=== PATIENT | female | born 1930 | race Caucasian/White ===

== ENCOUNTER 2017-05-11 09:55 | Inpatient (IN) | payer OTHER ==
[2017-05-11 10:19] VITALS: BMI 27.3
[2017-05-11] MEDS ORDERED: morphine CARPU-JECT 2 MG/1 ML DISP.SYRIN IVPUSH ONE (10:44)
--- NOTE | 2017-05-11 11:07 | PDOC ---
History of Present Illness <Manohar Smith - Last Filed: 05/11/17 12:27> - General History Source: Patient, Friend Exam Limitations: No Limitations - History of Present Illness Initial Comments: 05/11/17 11:35 The patient is a 86 year old female with a significant PMH of dementia, hypertension, hyperlipidemia, depression, and CVA who presents to the emergency department from her care home for evaluation of two falls approximately 6 days ago. The patient fell about 6 days ago, had right hip x ray at the time and had a second fall that day with face/head injury. The patient is a poor historian and is currently complaining of a mild headache but has no other complaints at this time. The patient denies any tingling or weakness to the extremities. The patient denies LOC, chest pain, shortness of breath, headache and dizziness. Denies fever, chills, nausea, vomit, diarrhea and constipation. Allergies: NKA Social history: No reported alcohol, cigarette, or drug use. PCP: Dr. Turpin <Margaux Ruffin - Last Filed: 05/11/17 13:13> - General Chief Complaint: Injury Stated Complaint: FALL/HIP PAIN Time Seen by Provider: 05/11/17 10:29 Past History - Past Medical History Anemia: No Asthma: No Cancer: No Cardiac Disorders: No CVA: Yes COPD: No CHF: No DVT: No Dementia: Yes (can sign own consent) Diabetes: No GI Disorders: No Disorders: No HTN: Yes Hypercholesterolemia: Yes Liver Disease: No Psychiatric Problems: Yes (dementia,anxiety,major depression) Seizures: No Thyroid Disease: No Other medical history: syncope,dry eyes,osteoporosis.PVD - Surgical History Abdominal Surgery: No Appendectomy: No Cardiac Surgery: No Cholecystectomy: No Lung Surgery: No Neurologic Surgery: No Orthopedic Surgery: Yes (right fracture ankle) - Suicide/Smoking/Psychosocial Hx Smoking History: Never smoked Have you smoked in the past 12 months: No Information on smoking cessation initiated: No Hx Alcohol Use: No Drug/Substance Use Hx: No Substance Use Type: None Hx Substance Use Treatment: No <Manohar Smith - Last Filed: 05/11/17 12:27> <Margaux Ruffin - Last Filed: 05/11/17 13:13> - Past Medical History Allergies/Adverse Reactions: Allergies Allergy/AdvReac Type Severity Reaction Status Date / Time No Known Drug Allergies Allergy Verified 05/11/17 10:19 Home Medications: Ambulatory Orders Aspirin [ASA -] 81 mg PO DAILY 10/25/13 Calcium Carbonate/Vitamin D3 [Calcium 500-Vit D3 200 Caplet] 1 each PO DAILY Clopidogrel Bisulfate [Plavix -] 75 mg PO DAILY 10/25/13 Docusate Sodium [Colace] 200 mg PO HS 10/25/13 Escitalopram Oxalate [Lexapro -] 20 mg PO DAILY 10/25/13 Lorazepam 1 mg PO DAILY 10/25/13 Simvastatin [Zocor -] 80 mg PO HS 10/25/13 Furosemide [Lasix -] 40 mg PO DAILY 10/09/14 Olanzapine 2.5 mg PO HS 10/09/14 Sennosides [Senna -] 1 tab PO HS 10/09/14 Alprazolam [Xanax] 0.5 mg PO PRN PRN 10/10/14 Lisinopril [Prinivil -] 10 mg PO DAILY 10/10/14 Hypromellose 0.5% Opth Soln [Artificial Tears] 1 drop OU DAILY 05/11/17 Review of Systems - Review of Systems Constitutional: No: Chills, Fever HEENTM: No: Recent change in vision Respiratory: No: Cough, Shortness of Breath Cardiac (ROS): No: Chest Pain ABD/GI: No: Nausea, Vomiting Musculoskeletal: Yes: Joint Pain Integumentary: Yes: Bruising Neurological: No: Tingling, Weakness All Other Systems: Reviewed and Negative <Manohar Smith - Last Filed: 05/11/17 12:27> *Physical Exam - Vital Signs Last Vital Signs Temp Pulse Resp BP Pulse Ox 97.6 F 87 19 159/84 97 05/11/17 10:14 05/11/17 10:14 05/11/17 10:14 05/11/17 10:14 05/11/17 10:25 <Manohar Smith - Last Filed: 05/11/17 12:27> - Vital Signs Last Vital Signs Temp Pulse Resp BP Pulse Ox 97.6 F 87 19 159/84 97 05/11/17 10:14 05/11/17 10:14 05/11/17 10:14 05/11/17 10:14 05/11/17 10:25 - Physical Exam Comments: 05/11/17 11:15 General: Patient is alert and in no acute distress. Speech is clear and appropriate. Head: Atraumatic and nontender. HEENT: (+) ecchymosis on the right inferior orbital. No bony deformity. No step off. Pupils are equal round and reactive to light, extraocular movements are intact. The tympanic membranes are clear, no hemotympanum. No septal hematoma. The oropharynx is clear. Neck: The trachea is midline, there is no stridor. There is no midline cervical spine tenderness, full range of motion of neck. Chest: Nontender, no ecchymosis or abrasions. Heart: S1-S2, regular rate and rhythm. No murmurs. Lungs: Clear to auscultation bilaterally. Symmetric chest rise. Abdomen: Soft/nontender/nondistended. Bowel sounds are normal. There is no abdominal or flank ecchymosis. Back/Pelvis: There is no midline spine tenderness or step-off. Pelvis is stable and nontender. Extremities: (+) Right leg slightly shorter, externally rotated. (+) Neurovascularly intact but right groin/hip tenderness to palpation. (+) Slight bruising on the posterior right hip. There is no joint swelling. No focal bony tenderness throughout. 2+ distal pulses throughout. Neuro: Alert and oriented x3. Cranial nerves II through XII are intact. 5 out of 5 motor strength x4 extremities. Esmora-jpvh-snryzz is intact. No pronator drift. Gait is stable. Psych: Affect is appropriate. <Margaux Ruffin - Last Filed: 05/11/17 13:13> Heart Score/ECG Review #1 ECG reviewed & interpreted by me at: 11:29 General ECG Interpretation: Sinus Rhythm, Normal Rate (92), Normal Intervals ( qtc 460), No acute ischemic changes (Q wave III/AVF) <Manohar Smith - Last Filed: 05/11/17 12:27> ED Treatment Course - LABORATORY CBC & Chemistry Diagram: 05/11/17 10:49 05/11/17 10:49 - RADIOLOGY Radiology Studies Ordered: Category Date Time Status HEAD CT WITHOUT CONTRAST [CT] Stat CT Scan 05/11/17 10:44 Ordered CHEST - PA [RAD] Stat Radiology 05/11/17 10:44 Ordered HIP & PELVIS-RIGHT [RAD] Stat Radiology 05/11/17 10:44 Ordered <Manohar Smith - Last Filed: 05/11/17 12:27> - LABORATORY CBC & Chemistry Diagram: 05/11/17 10:49 05/11/17 10:49 <Margaux Ruffin - Last Filed: 05/11/17 13:13> Medical Decision Making - Medical Decision Making 05/11/17 11:04 A portion of this note was documented by scribe services under my direction. I have reviewed the details of the note, within reason, and agree with the documentation with the following case summary and management plan written by me. 86y/o F from [facility] for further evaluation of falls. Pt fell about 6d ago, had R hip xray at that time that showed ? irregularity of R femoral neck. Pt has been nwb since then, had a second fall that day with face/head injury. vss bruising R face without bone deformity. FROM neck without focal ttp lungs clear trauma exam otherwise unremarkable except for RLE: slight shortening but externally rotated, tender with bruising to R hip, nvi distally 86-year-old female with fall and right hip injury concerning for fracture. Also with right facial injury, rule out TBI. CT head, right hip x-ray Pain control Labs Likely admission 05/11/17 12:15 wbc 12.9, chem wnl with normal Cr. On my prelim review, R femoral neck fx. CT head pending. Will proceed with admission, [facility] called. 05/11/17 12:27 CT head without acute pathology. Accepted for inpt med/surg by Dr. 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 Jeffers (orthopedics) <Margaux Ruffin - Last Filed: 05/11/17 13:13> *DC/Admit/Observation/Transfer - Discharge Dispostion Admit: Yes <Manohar Smith - Last Filed: 05/11/17 12:27> - Attestations Scribe Attestion: 05/11/17 11:36 Documentation prepared by Margaux Ruffin, acting as medical radiation tech for Manohar Smith MD. <Margaux Ruffin - Last Filed: 05/11/17 13:13> Diagnosis at time of Disposition: Injury of right hip Qualifiers: Encounter type: initial encounter Qualified Code(s): S79.911A - Unspecified injury of right hip, initial encounter Accidental fall Qualifiers: Encounter type: initial encounter Qualified Code(s): W19.XXXA - Unspecified fall, initial encounter Femoral neck fracture Qualifiers: Encounter type: initial encounter Fracture type: closed Laterality: right Qualified Code(s): S72.001A - Fracture of unspecified part of neck of right femur, initial encounter for closed fracture - Discharge Dispostion Condition at time of disposition: Fair
[2017-05-11] MEDS ORDERED: morphine CARPU-JECT 10 MG/1 ML DISP.SYRIN ONE (11:15)
[2017-05-11 11:20] LABS: EOS % 1.7 % (0-4.5); HEMATOCRIT 40.2 % (32.4-45.2); HEMOGLOBIN 12.8 GM/dL (10.7-15.3); LYMPH % 6.9 % (8-40); MCH 27.1 pg (25.7-33.7); MCHC 31.8 g/dl (32.0-36.0); MEAN CELL VOLUME 85.3 fl (80-96); MEAN PLT VOLUME 7.9 fl (7.5-11.1); MONO % 11.8 % (3.8-10.2); NEUT % 78.6 % (42.8-82.8); PLATELET COUNT 310 K/MM3 (134-434); RBC 4.71 M/mm3 (3.60-5.2); RDW 14.1 % (11.6-15.6); WHITE BLOOD COUNT 12.9 K/mm3 (4.0-10.0)
[2017-05-11 11:35] LABS: INR 1.07 (0.82-1.09); PROTHROMBIN TIME (PATIENT) 12.1 SEC (9.98-11.88)
[2017-05-11 11:38] LABS: ACTIVATED PTT 28.3 SECONDS (26.9-34.4); ALBUMIN 2.6 g/dl (3.4-5.0); ALK PHOS 82 U/L (45-117); ANION GAP 7 (8-16); BILIRUBIN,TOTAL 0.8 mg/dL (0.2-1.0); BLOOD UREA NITROGEN 23 mg/dL (7-18); CALCIUM 8.7 mg/dL (8.5-10.1); CHLORIDE 106 mmol/L (98-107); CO2 25 mmol/L (21-32); CREATININE 0.7 mg/dL (0.55-1.02); GLUCOSE,RANDOM 114 mg/dL (74-106); POTASSIUM 4.1 mmol/L (3.5-5.1); SGOT/AST 19 U/L (15-37); SGPT/ALT 21 U/L (12-78); SODIUM 138 mmol/L (136-145); TOT PROT 6.5 g/dl (6.4-8.2)
--- NOTE | 2017-05-11 12:12 | EKG ---
Test Reason : Blood Pressure : / mmHG Vent. Rate : 092 BPM Atrial Rate : 092 BPM P-R Int : 150 ms QRS Dur : 084 ms QT Int : 372 ms P-R-T Axes : 031 -05 056 degrees QTc Int : 460 ms NORMAL SINUS RHYTHM INFERIOR INFARCT , AGE UNDETERMINED ABNORMAL ECG WHEN COMPARED WITH ECG OF 13-DEC-2014 10:49, INFERIOR INFARCT IS NOW PRESENT Confirmed by HENRY TABARES MD ([id number]) on 05/11/2017 12:12:09 PM Referred By: Confirmed By:HENRY TABARES MD
--- NOTE | 2017-05-11 13:30 | HP ---
Admitting History and Physical - Primary Care Physician PCP: Corine Turpin - Admission Chief Complaint: bed bound, unable to weight bear History of Present Illness: HPI: This is a 86 year old female with pmhx Dementia, CVA, HTN, HLD, syncope, depression presented to the ED after a fall at [facility]. The patient herself states she fell out of bed trying to get up. [facility] prison records, she fell last Thursday. At that gisele right hip xrays were taken and later in the same day fell again on her head. Since her fall, the patient has been unable to weight bare or get out of bed. She is currently unable to lift her leg or move it without pain. She denies chest pain, sob, abdominal pain, n/v. 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 Cardiovascular: Yes: HTN, Hyperlipdemia Psych: Yes: Depression - Smoking History Smoking history: Never smoked Have you smoked in the past 12 months: No - Alcohol/Substance Use Hx Alcohol Use: No - Social History Usual Living Arrangement: Yes: Assisted Living ADL: Support Services Home Medications - Allergies Allergies/Adverse Reactions: Allergies Allergy/AdvReac Type Severity Reaction Status Date / Time No Known Drug Allergies Allergy Verified 05/11/17 10:19 - Home Medications Home Medications: Ambulatory Orders Aspirin [ASA -] 81 mg PO DAILY 10/25/13 Clopidogrel Bisulfate [Plavix -] 75 mg PO DAILY 10/25/13 Escitalopram Oxalate [Lexapro -] 20 mg PO DAILY 10/25/13 Simvastatin [Zocor -] 80 mg PO HS 10/25/13 Sennosides [Senna -] 1 tab PO HS 10/09/14 Alprazolam [Xanax] 0.5 mg PO PRN PRN 10/10/14 Lisinopril [Prinivil -] 10 mg PO DAILY 10/10/14 Hypromellose 0.5% Opth Soln [Artificial Tears] 1 drop OU DAILY 05/11/17 Review of Systems - Review of Systems Constitutional: reports: No Symptoms Eyes: reports: No Symptoms HENT: reports: No Symptoms Neck: reports: No Symptoms Cardiovascular: reports: No Symptoms Respiratory: reports: No Symptoms Gastrointestinal: reports: No Symptoms Genitourinary: reports: No Symptoms Musculoskeletal: reports: No Symptoms, Extremity Pain (RLE) Integumentary: reports: Bruising (L medial calf) Neurological: reports: No Symptoms Endocrine: reports: No Symptoms Hematology/Lymphatic: reports: No Symptoms Psychiatric: reports: No Symptoms Physical Examination Vital Signs: Vital Signs Temperature 97.6 F 05/11/17 10:14 Pulse Rate 87 05/11/17 10:14 Respiratory Rate 19 05/11/17 10:14 Blood Pressure 159/84 05/11/17 10:14 O2 Sat by Pulse Oximetry (%) 97 05/11/17 10:25 Constitutional: Yes: Well Nourished Eyes: Yes: Conjunctiva Clear HENT: Yes: Other (R orbital/infraorbital hematoma,) Neck: Yes: WNL Cardiovascular: Yes: Regular Rate and Rhythm, S1, S2 Respiratory: Yes: Regular, CTA Bilaterally Gastrointestinal: Yes: Normal Bowel Sounds, Soft Renal/: Yes: WNL Extremities: Yes: External Rotation (RLE), Shortened Edema: No Peripheral Pulses WNL: Yes Integumentary: Yes: WNL Neurological: Yes: Alert, Oriented, Cran Nerves II-XII Intact Labs: CBC, BMP 05/11/17 10:49 05/11/17 10:49 Imaging - Results Chest X-ray: Report Reviewed X-ray: Report Reviewed (hip xray: Right femoral neck fx) Cat Scan: Report Reviewed (no intracranial bleed) Problem List - Problems (1) Accidental fall Code(s): W19.XXXA - UNSPECIFIED FALL, INITIAL ENCOUNTER Qualifiers: Encounter type: initial encounter Qualified Code(s): W19.XXXA - Unspecified fall, initial encounter (2) Femoral neck fracture Code(s): S72.009A - FRACTURE OF UNSP PART OF NECK OF UNSP FEMUR, INIT Qualifiers: Encounter type: initial encounter Fracture type: closed Laterality: right Qualified Code(s): S72.001A - Fracture of unspecified part of neck of right femur, initial encounter for closed fracture (3) Injury of right hip Code(s): S79.911A - UNSPECIFIED INJURY OF RIGHT HIP, INITIAL ENCOUNTER Qualifiers: Encounter type: initial encounter Qualified Code(s): S79.911A - Unspecified injury of right hip, initial encounter (4) CVA (cerebral infarction) Code(s): I63.9 - CEREBRAL INFARCTION, UNSPECIFIED (5) Dementia Code(s): F03.90 - UNSPECIFIED DEMENTIA WITHOUT BEHAVIORAL DISTURBANCE (6) Depression Code(s): F32.9 - MAJOR DEPRESSIVE DISORDER, SINGLE EPISODE, UNSPECIFIED (7) Hyperlipemia Code(s): E78.5 - HYPERLIPIDEMIA, UNSPECIFIED Assessment/Plan Assessment: 86 year old female with HTN HLD, CVA, dementia admitted s/p fall in [place] found to have right hip fracture Plan: 1. Acute R femoral neck fracture - Pain control - Heparin TID - Ortho consulted 2. HTN - Lisinopril 10mg daily 3. hx CVA - Hold ASA - Hold Plavix 4. HLD - Statin 5. Depression - Lexapro 20mg daily 6. DVT ppx - Heparin sq Visit type - Emergency Visit Emergency Visit: Yes ED Registration Date: 05/11/17 Care time: The patient presented to the Emergency Department on the above date and was hospitalized for further evaluation of their emergent condition. - New Patient This patient is new to me today: Yes Date on this admission: 05/11/17 - Critical Care Critical Care patient: No
[2017-05-11] MEDS ORDERED: ACETAMINOPHEN 325 MG TABLET (FP) PO PRN (13:46)
[2017-05-11] MEDS ORDERED: ACETAMINOPHEN 1000 MG/100 ML VIAL (NON FORMULARY) IVPB ONE (13:54)
[2017-05-11] MEDS ORDERED: PATIENT'S OWN MEDICATION (NON-FORMULARY) (Alprazolam [Xanax] 0.5 MG) PO PRN (13:55)
[2017-05-11] MEDS ORDERED: ALPRAZolam 0.25 MG TABLET PO PRN (14:05)
[2017-05-11] MEDS: SODIUM CHLORIDE 0.45% 1,000 ML IV SCH (15:15)
[2017-05-11] MEDS ORDERED: SENNOSIDES 8.6MG TABLET (FP) PO SCH (22:00)
[2017-05-11] MEDS ORDERED: ATORVASTATIN CA 40 MG TABLET (FP) PO SCH (22:00)
--- NOTE | 2017-05-11 22:16 | PN ---
Progress Note (short form) - Note Progress Note: Consult dictated. Patient can go to OR tomorrow evening if clear. Can be NPO past breakfast for OR around 7pm.
[2017-05-12] MEDS: HEPARIN NA (PORCINE) 5,000 UNITS/ML 1ML VIAL SQ SCH ×3 (02:50→17:29)
[2017-05-12 08:38] LABS: BASO % 0.7 % (0-2.0); EOS % 6.7 % (0-4.5); HEMOGLOBIN 11.9 GM/dL (10.7-15.3); LYMPH % 10.5 % (8-40); MCH 27.4 pg (25.7-33.7); MCHC 32.2 g/dl (32.0-36.0); MEAN CELL VOLUME 85.3 fl (80-96); MEAN PLT VOLUME 8.1 fl (7.5-11.1); MONO % 11.6 % (3.8-10.2); NEUT % 70.5 % (42.8-82.8); PLATELET COUNT 297 K/MM3 (134-434); RBC 4.34 M/mm3 (3.60-5.2); RDW 13.9 % (11.6-15.6); WHITE BLOOD COUNT 9.8 K/mm3 (4.0-10.0)
--- NOTE | 2017-05-12 08:40 | CONS ---
DATE OF CONSULTATION: 05/11/2017 CHIEF COMPLAINT: Right hip pain. HISTORY OF PRESENT ILLNESS: This is an 86-year-old custodial resident who has history of dementia who had fallen out of bed last Thursday. Initial x-rays of right hip were taken. However, no definite fracture was identified. Patient has been continuously bedbound since the 2nd fall the same day and was brought to [facility] Emergency Department. Initially, she was found to have a right hip fracture. Orthopedic consultation was called. She is pleasant on conversation, but does not provide any significant additional history. She does note pain in the right hip area. She denies any radiating pain, numbness, or tingling. PAST MEDICAL HISTORY: Significant for stroke, hypertension, hyperlipidemia, history of syncope, depression. SOCIAL HISTORY: She denies any alcohol, tobacco, or drugs. SOCIAL HISTORY: Significant for living at assisted living facility. MEDICATIONS: Reviewed as in chart. Most significant for being on Plavix. ALLERGIES: Denies and none in the medical record. REVIEW OF SYMPTOMS: Negative for fever, chills, nausea, vomiting, or night sweats. PHYSICAL EXAMINATION: General: This is an elderly female in no acute distress. She is alert and answering questions appropriately. She is somewhat disoriented. Extremities: Examination of the right lower extremity demonstrates it is short and externally rotated. There is pain with any motion of the limb. The knee is nontender. The ankle is nontender. Distally, sensation is intact to light touch, 1+ DP pulse. Intact EHL and FHL. RADIOGRAPHS: Radiographs are reviewed demonstrating a displaced right femoral neck fracture. ASSESSMENT: Right displaced femoral neck fracture PLAN: I reviewed todays findings with the patient as much as she was able to understand. At this point, in order to provide for hip mobilization, perineal care, and pain relief, I am recommending that patient be taken for a right hip hemiarthroplasty. Given the time of evening, I did not contact the proxy this evening. However, I will speak with them in the morning.to go over the consent for the procedure. At that discussion, we will cover the operative risks which include bleeding, infection, neurovascular injury, need for further surgery, postoperative pain and stiffness, periprosthetic fracture, hip instability. We will discuss medical risks such as heart attack, stroke, DVT, PE, and . While ideally, hip fractures are fixed within 48 hours of the injury to minimize complications, this woman is already well out of that window, and so, I do not see any particular urgency. However, I do believe that mobilizing her sooner rather than later is better. If the patients health care proxy does consent, she will be brought to the OR tomorrow. GERARDO MARTI M.D. ROBIN/[id number]
[2017-05-12] MEDS: SODIUM CHLORIDE 0.45% 1,000 ML IV SCH (09:01)
[2017-05-12 09:06] LABS: ALBUMIN 2.4 g/dl (3.4-5.0); ANION GAP 8 (8-16); BLOOD UREA NITROGEN 22 mg/dL (7-18); CALCIUM 8.6 mg/dL (8.5-10.1); CHLORIDE 105 mmol/L (98-107); CO2 24 mmol/L (21-32); GLUCOSE,RANDOM 88 mg/dL (74-106); POTASSIUM 4.1 mmol/L (3.5-5.1); SGOT/AST 17 U/L (15-37); SGPT/ALT 20 U/L (12-78); SODIUM 137 mmol/L (136-145)
[2017-05-12 09:09] LABS: ALK PHOS 73 U/L (45-117); BILIRUBIN,TOTAL 0.7 mg/dL (0.2-1.0); CREATININE 0.7 mg/dL (0.55-1.02); TOT PROT 5.9 g/dl (6.4-8.2)
[2017-05-12 09:12] LABS: INR 1.08 (0.82-1.09); PROTHROMBIN TIME (PATIENT) 12.2 SEC (9.98-11.88)
[2017-05-12] MEDS ORDERED: ESCITALOPRAM OXALATE 20 MG TABLET (FP) PO SCH (10:00)
[2017-05-12] MEDS ORDERED: LISINOPRIL 10 MG TABLET (FP) PO SCH (10:00)
[2017-05-12] MEDS ORDERED: PT OWN MED DRAWER 7, Y5N ONE (10:19)
--- NOTE | 2017-05-12 10:54 | PN ---
Physical Exam: SUBJECTIVE: Patient seen and examined. She states she has a lot of pain with even the slightest movement. OBJECTIVE: Vital Signs Period Temp Pulse Resp BP Sys/Pagan Pulse Ox Last 24 Hr 97.7 F-98.8 F 73-82 17-20 119-150/76-87 96-96 PE Neuro: alert, awake, cn 2-12intact HEENT: R infraorbital ecchymosis Pulm: clear anteriorly CV: s1 s2 rrr no mrg Abd: s nt nd + bs Msk: R groin tenderness Ext: + DP pulses, RLE externally rotated no swelling Laboratory Results - last 24 hr 05/11/17 05/12/17 05/12/17 10:49 07:45 07:45 WBC 9.8 RBC 4.34 Hgb 11.9 Hct 37.0 MCV 85.3 MCH 27.4 MCHC 32.2 RDW 13.9 Plt Count 297 MPV 8.1 Neutrophils % 70.5 Lymphocytes % 10.5 D Monocytes % 11.6 H Eosinophils % 6.7 H D Basophils % 0.7 PT with INR 12.20 H INR 1.08 PTT (Actin FS) Sodium Potassium Chloride Carbon Dioxide Anion Gap BUN Creatinine Creat Clearance w eGFR Random Glucose Calcium Total Bilirubin AST ALT Alkaline Phosphatase Total Protein Albumin Blood Type O POSITIVE Antibody Screen Negative 05/12/17 07:45 WBC RBC Hgb Hct MCV MCH MCHC RDW Plt Count MPV Neutrophils % Lymphocytes % Monocytes % Eosinophils % Basophils % PT with INR INR PTT (Actin FS) Sodium 137 Potassium 4.1 Chloride 105 Carbon Dioxide 24 Anion Gap 8 BUN 22 H Creatinine 0.7 Creat Clearance w eGFR > 60 Random Glucose 88 D Calcium 8.6 Total Bilirubin 0.7 AST 17 ALT 20 Alkaline Phosphatase 73 Total Protein 5.9 L Albumin 2.4 L Blood Type Antibody Screen Active Medications Generic Name Dose Route Start Last Admin Trade Name Freq PRN Reason Stop Dose Admin Acetaminophen 650 mg 05/11/17 13:46 05/11/17 22:36 Tylenol - PO 650 mg Q4H PRN Administration FEVER OR PAIN Alprazolam 0.5 mg 05/11/17 14:05 Xanax - PO DAILY PRN ANXIETY Artificial Tears 1 drop 05/12/17 10:00 Artificial Tears OU DAILY CARITO Atorvastatin Calcium 40 mg 05/11/17 22:00 05/11/17 22:32 Lipitor - PO 40 mg HS CARITO Administration Escitalopram Oxalate 20 mg 05/12/17 10:00 05/12/17 09:00 Lexapro - PO Not Given DAILY CARITO Heparin Sodium (Porcine) 5,000 unit 05/11/17 18:00 05/12/17 09:00 Heparin - SQ Not Given Q8H-IV CARITO Sodium Chloride 1,000 mls @ 42 mls/hr 05/11/17 14:15 05/12/17 09:01 1/2 Normal Saline IV 42 mls/hr ASDIR CARITO Administration Lisinopril 10 mg 05/12/17 10:00 05/12/17 08:59 Prinivil PO 10 mg DAILY CARITO Administration Senna 1 tab 05/11/17 22:00 05/11/17 22:31 Senna - PO 1 tab HS CARITO Administration Assessment: 86 year old female with HTN HLD, CVA, dementia admitted s/p fall in [place] last Thursday, found to have right hip fracture Plan: 1. Acute R femoral neck fracture - Tentatively scheduled for r hemiarthroplasty this evening - Cardiology consulted for pre op clearance - Pain control - Heparin TID - Keep NPO 2. HTN - Lisinopril 10mg daily 3. hx CVA - Hold ASA - Hold Plavix 4. HLD - Statin 5. Depression - Lexapro 20mg daily 6. DVT ppx - Heparin sq Problem List - Problems (1) Accidental fall Code(s): W19.XXXA - UNSPECIFIED FALL, INITIAL ENCOUNTER Qualifiers: Encounter type: initial encounter Qualified Code(s): W19.XXXA - Unspecified fall, initial encounter (2) Femoral neck fracture Code(s): S72.009A - FRACTURE OF UNSP PART OF NECK OF UNSP FEMUR, INIT Qualifiers: Encounter type: initial encounter Fracture type: closed Laterality: right Qualified Code(s): S72.001A - Fracture of unspecified part of neck of right femur, initial encounter for closed fracture (3) Injury of right hip Code(s): S79.911A - UNSPECIFIED INJURY OF RIGHT HIP, INITIAL ENCOUNTER Qualifiers: Encounter type: initial encounter Qualified Code(s): S79.911A - Unspecified injury of right hip, initial encounter (4) CVA (cerebral infarction) Code(s): I63.9 - CEREBRAL INFARCTION, UNSPECIFIED (5) Dementia Code(s): F03.90 - UNSPECIFIED DEMENTIA WITHOUT BEHAVIORAL DISTURBANCE (6) Depression Code(s): F32.9 - MAJOR DEPRESSIVE DISORDER, SINGLE EPISODE, UNSPECIFIED (7) Hyperlipemia Code(s): E78.5 - HYPERLIPIDEMIA, UNSPECIFIED Qualifiers: Hyperlipidemia type: pure hypercholesterolemia Qualified Code(s): E78.00 - Pure hypercholesterolemia, unspecified; E78.0 - Pure hypercholesterolemia Visit type - Emergency Visit Emergency Visit: Yes ED Registration Date: 05/11/17 Care time: The patient presented to the Emergency Department on the above date and was hospitalized for further evaluation of their emergent condition. - New Patient This patient is new to me today: No - Critical Care Critical Care patient: No
[2017-05-12] MEDS ORDERED: morphine CARPU-JECT 10 MG/1 ML DISP.SYRIN IVPUSH PRN (11:15)
--- NOTE | 2017-05-12 11:44 | CON.CARD ---
Consult Reason for Consultation:: Pre-operative clearance - History of Present Illness History of Present Illness: 86 year old female with a hx of dementia, CVA, HTN, HLD, multiple syncopal episodes, and depression arrived at the hospital yesterday from [facility] after a reported fall last Thursday. She was diagnosed with a R femoral neck fracture. Patient is scheduled for R hip hemiarthroplasty tonight at 7pm with Dr. Jeffers, and cardiology is consulted for pre-operative clearance. Patient is a poor historian and does not recall some of her history. Patient states that she does not remember any chest pain, palpitations, nausea, or lightheadedness prior to the fall, and only remembers waking up after the fall. She states that she has had numerous syncopal episodes in the past for which she has fallen, but the patient cannot recall whether this episode felt similar to the previous ones. Patient reports having an OK several years ago, the exact date she cannot remember. She cannot remember where she went for catheterization , and only states that she didn't go into the city for the procedure. She is uncomfortable with pain in her R hip at an 8/10 in severity. Currently, patient denies chest pain, shortness of breath, nausea, vomiting, diarrhea, fevers, chills. Denies pain or paresthesias in her legs. She states that she feels anxious about her condition. - History Source History Provided By: Patient Limitations to Obtaining History: Poor Historian - Past Medical History COLORS CUSTODIAN: Yes: CVA, Dementia Cardio/Vascular: Yes: HTN, Hyperlipdemia, OK (possible stents, hx unclear) Psych: Yes: Depression - Past Surgical History Past Surgical History: Yes: Stent (unknown date) - Alcohol/Substance Use Hx Alcohol Use: No - Smoking History Smoking history: Never smoked Have you smoked in the past 12 months: No - Social History ADL: Support Services <Gerard Covington - Last Filed: 05/12/17 11:49> Consult Specialty:: Cardiology Referred by:: Hospitalist - History of Present Illness Chief Complaint: Cardiac clearance <Lopez Guerra - Last Filed: 05/12/17 22:35> Home Medications <Gerard Covington - Last Filed: 05/12/17 11:49> <Lopez Guerra - Last Filed: 05/12/17 22:35> - Allergies Allergies/Adverse Reactions: Allergies Allergy/AdvReac Type Severity Reaction Status Date / Time No Known Drug Allergies Allergy Verified 05/11/17 10:19 - Home Medications Home Medications: Ambulatory Orders Clopidogrel Bisulfate [Plavix -] 75 mg PO DAILY 10/25/13 Escitalopram Oxalate [Lexapro -] 20 mg PO DAILY 10/25/13 Simvastatin [Zocor -] 80 mg PO HS 10/25/13 Sennosides [Senna -] 1 tab PO HS 10/09/14 Lisinopril [Prinivil -] 10 mg PO DAILY 10/10/14 Acetaminophen 650 mg PO Q4H PRN 05/11/17 Ergocalciferol [Vitamin D2] 50,000 unit PO MONTHLY 05/11/17 Hypromellose 0.5% Opth Soln [Artificial Tears] 1 drop OU DAILY 05/11/17 Ondansetron HCl [Zofran] 4 mg PO ASDIR PRN 05/11/17 Review of Systems - Review of Systems Constitutional: reports: No Symptoms Eyes: reports: No Symptoms HENT: reports: No Symptoms Neck: reports: No Symptoms Cardiovascular: reports: No Symptoms Respiratory: reports: No Symptoms Gastrointestinal: reports: No Symptoms Musculoskeletal: reports: Extremity Pain (R hip pain) Integumentary: reports: No Symptoms Neurological: reports: No Symptoms Pain Intensity: 8 <Gerard Covington - Last Filed: 05/12/17 11:49> - Risk Factors Known Risk Factors: Yes: Age, Hypercholesterolemia, Hypertension Vital Signs: Vital Signs Temperature 98.8 F 05/12/17 10:00 Pulse Rate 74 05/12/17 10:00 Respiratory Rate 20 05/12/17 10:00 Blood Pressure 150/87 05/12/17 10:00 O2 Sat by Pulse Oximetry (%) 96 05/12/17 02:25 Constitutional: Yes: Well Nourished, No Distress, Calm Eyes: Yes: Conjunctiva Clear, EOM Intact HENT: Yes: Atraumatic, Normocephalic Neck: Yes: Supple, Trachea Midline Respiratory: Yes: Regular, CTA Bilaterally Gastrointestinal: Yes: Normal Bowel Sounds, Soft Cardiovascular: Yes: Regular Rate and Rhythm JVD: No Carotid Bruit: No Heart Sounds: Yes: S1, S2. No: Gallop, Rub, Bruit Murmur: No: Systolic Murmur, Diastolic Murmur Musculoskeletal: Yes: WNL Extremities: Yes: External Rotation (R hip) Peripheral Pulses WNL: Yes Neurological: Yes: Alert, Oriented ...Motor Strength: WNL Psychiatric: Yes: Alert, Oriented - Other Data Labs, Other Data: CBC, BMP 05/12/17 07:45 05/12/17 07:45 INR, PTT INR 1.08 (0.82-1.09) 05/12/17 07:45 EKG Findings: old inferior infarct noted <NadyaGerard - Last Filed: 05/12/17 11:49> Vital Signs: Vital Signs Temperature 98.1 F 05/12/17 14:53 Pulse Rate 78 05/12/17 14:53 Respiratory Rate 20 05/12/17 10:00 Blood Pressure 150/87 05/12/17 14:53 O2 Sat by Pulse Oximetry (%) 96 05/12/17 02:25 - Other Data Labs, Other Data: CBC, BMP 05/12/17 07:45 05/12/17 07:45 INR, PTT INR 1.08 (0.82-1.09) 05/12/17 07:45 <Lopez Guerra Eric - Last Filed: 05/12/17 22:35> Imaging - Results X-ray: Report Reviewed <NadyaGerard - Last Filed: 05/12/17 11:49> Problem List - Problems (1) Accidental fall Code(s): W19.XXXA - UNSPECIFIED FALL, INITIAL ENCOUNTER QualifierTitle: Encounter type: initial encounter Qualified Code(s): W19.XXXA - Unspecified fall, initial encounter (2) Femoral neck fracture Code(s): S72.009A - FRACTURE OF UNSP PART OF NECK OF UNSP FEMUR, INIT QualifierTitle: Encounter type: initial encounter Fracture type: closed Laterality: right Qualified Code(s): S72.001A - Fracture of unspecified part of neck of right femur, initial encounter for closed fracture <NadyaGerard - Last Filed: 05/12/17 11:49> - Problems (1) CAD (coronary artery disease) Code(s): I25.10 - ATHSCL HEART DISEASE OF [place] CORONARY ARTERY W/O ANG PCTRS Qualifiers: Coronary Disease-Associated Artery/Lesion type: [place] artery [place] vs. transplanted heart: [place] heart Associated angina: without angina Qualified Code(s): I25.10 - Atherosclerotic heart disease of [place] coronary artery without angina pectoris (2) Percutaneous transluminal coronary angioplasty (PTCA) within last 14 to 24 months Code(s): Z98.61 - CORONARY ANGIOPLASTY STATUS (3) Femoral neck fracture Code(s): S72.009A - FRACTURE OF UNSP PART OF NECK OF UNSP FEMUR, INIT Qualifiers: Encounter type: initial encounter Fracture type: closed Laterality: right Qualified Code(s): S72.001A - Fracture of unspecified part of neck of right femur, initial encounter for closed fracture (4) CVA (cerebral infarction) Code(s): I63.9 - CEREBRAL INFARCTION, UNSPECIFIED (5) Hyperlipemia Code(s): E78.5 - HYPERLIPIDEMIA, UNSPECIFIED Qualifiers: Hyperlipidemia type: pure hypercholesterolemia Qualified Code(s): E78.00 - Pure hypercholesterolemia, unspecified; E78.0 - Pure hypercholesterolemia (6) HTN (hypertension) Code(s): I10 - ESSENTIAL (PRIMARY) HYPERTENSION Qualifiers: Hypertension type: essential hypertension Qualified Code(s): I10 - Essential (primary) hypertension <Lopez Guerra Eric - Last Filed: 05/12/17 22:35> Assessment/Plan 86 yo female w/ pmh dementia, CVA, HTN, HLD, syncope, depression s/p fall @ [facility] last Thursday scheduled for R hemiarthroplasty tonight. -From cardiac perspective, patient is cleared for surgery tonight -Would like to get echocardiogram anyway to further assess cardiac status, can be done prior to surgery today -Home plavix has been stopped -Patient is on home simvastatin 80 -> recommend changing to 40 of atorvastatin after the surgery <Gerard Covington - Last Filed: 05/12/17 11:49> HPI: Patient was seen and examined with Dr. Gerard Covington, resident on cardiology teaching service. Consultation was requested for preoperative cardiac clearance prior to hip surgery. She is an 86 year old femle with underlying organic brain syndrome, CAD , PCI/stent, CVA, hypertension, hypercholesterolemia and depression who resides at [facility]. She had fallen 1 week ago with possible syncope. She presents for right hemiarthroplasy tonight. She is a poor historian. She denies chest pain, SOB or palpitations. She denies paroxysmal nocturnal dyspnea or orthopnea. She denies fever or chills. She denies headache or lightheadedness. She denies nausea, vomiting, diarrhea or abdominal pain. SEE PMH, PSH, ALLERGIES, PE and blood works and pertinent tests as outlined PHYSICAL EXAMINATION Last Vital Signs Temp Pulse Resp BP Pulse Ox 98.1 F 78 20 150/87 96 05/12/17 14:53 05/12/17 14:53 05/12/17 10:00 05/12/17 14:53 05/12/17 02:25 HEENT: Pupils are equal and reactive to light and accommodation Heart: S1 S2 regular soft SM, no gallops Lung: Decreased breath sounds ABD: Soft, nontender, normoactive bowel sounds EXT: No edema Laboratory Results - last 24 hr 05/12/17 05/12/17 05/12/17 07:45 07:45 07:45 WBC 9.8 RBC 4.34 Hgb 11.9 Hct 37.0 MCV 85.3 MCH 27.4 MCHC 32.2 RDW 13.9 Plt Count 297 MPV 8.1 Neutrophils % 70.5 Lymphocytes % 10.5 D Monocytes % 11.6 H Eosinophils % 6.7 H D Basophils % 0.7 PT with INR 12.20 H INR 1.08 Sodium 137 Potassium 4.1 Chloride 105 Carbon Dioxide 24 Anion Gap 8 BUN 22 H Creatinine 0.7 Creat Clearance w eGFR > 60 Random Glucose 88 D Calcium 8.6 Total Bilirubin 0.7 AST 17 ALT 20 Alkaline Phosphatase 73 Total Protein 5.9 L Albumin 2.4 L ASSESSMENT: 1. Pre-operative cardiovascular evaluation - hip fracture post fall 2. Possible syncope 3. CAD s/p PCI/stent, angina 4. Hypertension 5. Hypercholesterolemia 6. Organic brain/dementia PLAN: 1. No absolute contraindication in proceeding with planned hemiarthorplasty in view of absence of ischemic symptoms, decompensated congestive heart failure and malignant arrhythmias. Post operative cardiac enzymes and ECG 2. Consider low dose beta leoncio +/- ACEI or ARB 3. Restart ASA after surgery 4. Statin as outlined above 5. Transthoracic echocardiography to assess LV/RV and valvular function Further plans are to follow Lopez Guerra MD <Lopez Guerra - Last Filed: 05/12/17 22:35>
[2017-05-12] MEDS ORDERED: ACETAMINOPHEN 1000 MG/100 ML VIAL (NON FORMULARY) IVPB ONE (11:45)
[2017-05-12] MEDS: ARTIFICIAL TEARS (POLYVINYL ALCOHOL 1.4%) OPTH DROPS OU SCH ×2 (13:32→13:42)
[2017-05-12] MEDS ORDERED: MIDAZOLAM HCL 2 MG/2 ML SINGLE DOSE VIAL ONE (19:08)
[2017-05-12] MEDS ORDERED: PROPOFOL 20 ML ONE (19:09)
[2017-05-12] MEDS ORDERED: ROCURONIUM BROMIDE 50 MG/5 ML VIAL ONE (19:10)
[2017-05-12] MEDS ORDERED: TETRACAINE/BENZOCAINE/BUTAMBEN 20 GM SPR TP ONE (19:11)
[2017-05-12] MEDS ORDERED: ceFAZolin SODIUM 1 GM VIAL ONE (19:39)
[2017-05-12] MEDS ORDERED: ceFAZolin SODIUM 1 GM VIAL IVPB ONE (19:40)
[2017-05-12] MEDS ORDERED: TRANEXAMIC ACID 1000 MG/10 ML VIAL ONE ×2 (19:47→21:23)
[2017-05-12] MEDS ORDERED: DEXAMETHASONE SOD PHOSPHATE 4 MG/1 ML VIAL ONE (19:57)
[2017-05-12] MEDS ORDERED: BACITRACIN 50,000 UNITS VIAL TP ONE (20:15)
[2017-05-12] MEDS ORDERED: GLYCOPYRROLATE 0.2 MG/1 ML VIAL ONE (21:26)
[2017-05-12] MEDS ORDERED: NEOSTIGMINE METHYLSULFATE 0.5 MG/ML - 10 ML MDV ONE (21:26)
[2017-05-12] MEDS ORDERED: SODIUM CHLORIDE 0.45% 1,000 ML IV SCH (22:33)
[2017-05-12] MEDS ORDERED: ALPRAZolam 0.25 MG TABLET PO PRN (22:33)
[2017-05-12] MEDS ORDERED: ACETAMINOPHEN 325 MG TABLET (FP) PO PRN (22:33)
--- NOTE | 2017-05-12 22:39 | PN ---
Teaching Attending Note Name of Resident: Gerard Covington ATTENDING PHYSICIAN STATEMENT I saw and evaluated the patient. I reviewed the resident's note and discussed the case with the resident. I agree with the resident's findings and plan as documented. Please see my note after the resident's note ASSESSMENT AND PLANS are as outlined Lopez Guerra MD Problem List - Problems (1) CAD (coronary artery disease) Code(s): I25.10 - ATHSCL HEART DISEASE OF [place] CORONARY ARTERY W/O ANG PCTRS Qualifiers: Coronary Disease-Associated Artery/Lesion type: [place] artery [place] vs. transplanted heart: [place] heart Associated angina: without angina Qualified Code(s): I25.10 - Atherosclerotic heart disease of [place] coronary artery without angina pectoris (2) Percutaneous transluminal coronary angioplasty (PTCA) within last 14 to 24 months Code(s): Z98.61 - CORONARY ANGIOPLASTY STATUS (3) Femoral neck fracture Code(s): S72.009A - FRACTURE OF UNSP PART OF NECK OF UNSP FEMUR, INIT Qualifiers: Encounter type: initial encounter Fracture type: closed Laterality: right Qualified Code(s): S72.001A - Fracture of unspecified part of neck of right femur, initial encounter for closed fracture (4) CVA (cerebral infarction) Code(s): I63.9 - CEREBRAL INFARCTION, UNSPECIFIED (5) Hyperlipemia Code(s): E78.5 - HYPERLIPIDEMIA, UNSPECIFIED Qualifiers: Hyperlipidemia type: pure hypercholesterolemia Qualified Code(s): E78.00 - Pure hypercholesterolemia, unspecified; E78.0 - Pure hypercholesterolemia (6) HTN (hypertension) Code(s): I10 - ESSENTIAL (PRIMARY) HYPERTENSION Qualifiers: Hypertension type: essential hypertension Qualified Code(s): I10 - Essential (primary) hypertension
[2017-05-13] MEDS ORDERED: PT OWN MED DRAWER 7, Y5N ONE (00:53)
[2017-05-13] MEDS: morphine CARPU-JECT 10 MG/1 ML DISP.SYRIN IVPUSH PRN ×2 (01:15→10:45)
[2017-05-13] MEDS: CEFAZOLIN 2 GM/D5W 2 GM/50 ML ML IVPB SCH ×2 (01:24→10:44)
[2017-05-13] MEDS ORDERED: CEFAZOLIN 2 GM in DEXTROSE 5%-WATER - 100 ML IVPB SCH (02:00)
--- NOTE | 2017-05-13 08:39 | PN ---
Progress Note (short form) - Note Progress Note: Post op day#1.S/P Right hip hemiarthroplasty under [place] uneventful.Patient stanle.No any anesthesia related problem.Patient DC from the anesthesia care.
[2017-05-13 08:41] LABS: HEMATOCRIT 34.9 % (32.4-45.2); HEMOGLOBIN 11.1 GM/dL (10.7-15.3); MCHC 31.7 g/dl (32.0-36.0); MEAN CELL VOLUME 85.3 fl (80-96); MEAN PLT VOLUME 8.5 fl (7.5-11.1); PLATELET COUNT 328 K/MM3 (134-434); RBC 4.09 M/mm3 (3.60-5.2); RDW 14.2 % (11.6-15.6); WHITE BLOOD COUNT 15.6 K/mm3 (4.0-10.0)
[2017-05-13 09:23] LABS: ANION GAP 10 (8-16); BLOOD UREA NITROGEN 24 mg/dL (7-18); CALCIUM 8.6 mg/dL (8.5-10.1); CHLORIDE 103 mmol/L (98-107); CO2 22 mmol/L (21-32); CREATININE 0.7 mg/dL (0.55-1.02); GLUCOSE,RANDOM 103 mg/dL (74-106); SODIUM 135 mmol/L (136-145)
--- NOTE | 2017-05-13 09:38 | OP ---
DATE OF OPERATION: 05/12/2017 PREOPERATIVE DIAGNOSIS: Right displaced femoral neck fracture. POSTOPERATIVE DIAGNOSIS: Right displaced femoral neck fracture. PROCEDURE: Right hip hemiarthroplasty. SURGEON: Brian Jeffers MD COIL MAKER: Buck Garcias PA-C, MPAS. Skillful assistance was necessary for the safe and timely performance of this procedure. Mr. Garcias was able to help provide positioning, retraction, assist in extraction of the femoral neck and head, as well as assist with insertion of the prosthetic component. ANESTHESIA: General. BLOOD LOSS: 250 mL. IMPLANTS: Depuy Corail stem size 14 with a 0-mm spacer and 49-mm bipolar head as well as a Dall-Coub steel cable x1. POSTOPERATIVE CONDITION: Stable. INDICATIONS: This is a pleasant 86-year-old woman who suffered a fall. She had x-rays taken, which did not display fracture; however, she continued to experience pain and was unable to ambulate or mobilize. She was brought to the emergency room after several days of being unable to move and radiographs were obtained, now demonstrating displaced femoral neck fracture. Treatment options including nonoperative versus operative care were reviewed with the patient as well as the healthcare proxy. Operative care was recommended to allow for mobilization. Operative risks were reviewed including bleeding, infection, neurovascular injury, need for further surgery, postoperative pain and stiffness, periprosthetic fracture, hip instability, limb length discrepancy, and rotational deformity. We discussed medical risks such as heart attack, stroke, DVT, PE, and . I reviewed the rehabilitation protocol. We discussed hip precautions. We discussed the use of perioperative antibiotic prophylaxis. We discussed the use of perioperative DVT prophylaxis. I addressed all of the patient's healthcare proxy's questions. They voiced understanding and elected to proceed. PROCEDURE: The patient was placed in the operating room, where general anesthesia was administered. She was placed in the lateral decubitus position, careful to pad all bony prominences. The right lower extremity was then prepped and draped in the usual sterile fashion. A preoperative dose of antibiotics was given and the usual timeout procedure was performed. The incision was now planned out laterally over the greater trochanter. This was carried down through the skin and subcutaneous tissue. Electrocautery was used to maintain hemostasis. The fascia gurvinedr was now exposed. It was spread in line with its fibers. Charnley retractor was placed to provide visualization. The was now reflected posteriorly. The limb was internally rotated gently and electrocautery was used to dissect along the posterior aspect of the and femoral neck. The capsule was externally rotated and was elevated in a single layer. The layer was now tagged with number 1 Vicryl sutures. The femoral neck was not identified and a neck-cutting template was applied. A 45-degree cut was made using an oscillating saw. The neck fragment was then removed. A corkscrew device was now inserted into the femoral head and this was extracted. It was measured and a 49-mm was chosen. A trial was inserted and excellent suction seal was achieved and this was removed. Attention was now turned to the femur. An additional retractor was placed under the femur to elevate it out of the wound. Box osteotome was used to gain lateral entrance to the femoral canal. A canal finder was then passed down the canal. A broach was then inserted and progressively enlarged up to a size 14 where excellent purchase was achieved. The trial 0 neck and 49-mm head were applied. The hip was then reduced. Excellent stability was achieved. There was no extensive tightness. The hip was then re-dislocated. During the re-dislocation process, a crack was felt. The trial stem was now removed. It was seen that there was a small crack in the femoral neck remnant, which was just proximal to the . No distal extent was identified. At this point, the final component was malleted into place. Excellent fit was achieved. For propagation of the crack, a Dall-Miles cable was inserted, taking care to stay in close contact with the bone all of the way around the femur. This was then cinched into place with 50 pounds of tension. The excess cable was then trimmed. An intraoperative radiograph was obtained, demonstrating satisfactory positioning of the stem and no crack propagation. The final components were now malleted onto the Shi taper and then the hip was again reduced. Hip was passed through range of motion and again found to be stable. The hip was pulse irrigated. The capsule and external rotators were then repaired through 2 drill holes through the back of the greater trochanter. These were then tied into place with the limb in external rotation. The wound was again pulse irrigated. The fascia was now closed using number 1 Vicryl. The subcutaneous tissue was loosely approximated using 0 Vicryl deeply. Subcutaneously, a 2-0 Vicryl was used. Then, 3-0 nylon was then used to run along the skin and close it. Sterile dressings were placed. The patient was extubated and transferred to the recovery room in stable condition. Jeanne SERRATO/[id number]
[2017-05-13] MEDS ORDERED: ESCITALOPRAM OXALATE 10 MG TABLET (FP) ONE (10:36)
--- NOTE | 2017-05-13 10:38 | PN ---
Progress Note (short form) - Note Progress Note: Pt lying comf in bed. Pain well controlled. Last Vital Signs Temp Pulse Resp BP Pulse Ox 98.8 F 97 H 20 120/61 98 05/13/17 06:00 05/13/17 06:00 05/13/17 06:00 05/13/17 06:00 05/12/17 23:45 RLE dressing cdi calves soft nt sens int to LT 2+ dp ehl fhl ta g s intact Laboratory Results - last 24 hr 05/13/17 05/13/17 05:24 05:24 WBC 15.6 H D RBC 4.09 Hgb 11.1 Hct 34.9 MCV 85.3 MCH 27.0 MCHC 31.7 L RDW 14.2 Plt Count 328 MPV 8.5 Sodium 135 L Potassium 5.0 D Chloride 103 Carbon Dioxide 22 Anion Gap 10 BUN 24 H Creatinine 0.7 Random Glucose 103 Calcium 8.6 A/p: POD 1 R hip hemiarthroplasty -pain control -dvt proph (lovenox 4 weeks) -oob/rehab -hip precautions -post op abx -f/u AM cbc
[2017-05-13] MEDS: LISINOPRIL 10 MG TABLET (FP) PO SCH (10:43)
[2017-05-13] MEDS: ARTIFICIAL TEARS (POLYVINYL ALCOHOL 1.4%) OPTH DROPS OU SCH (10:44)
[2017-05-13] MEDS: ESCITALOPRAM OXALATE 20 MG TABLET (FP) PO SCH (10:44)
[2017-05-13] MEDS: CALCIUM 500MG/VIT-D 200 UNITS COMBO TABLET (FP) PO SCH (10:45)
--- NOTE | 2017-05-13 11:15 | PN ---
Physical Exam: SUBJECTIVE: Patient seen and examined. She reports she is in pain. Explained importance of asking for pain medication and Physical therapy . OBJECTIVE: Vital Signs Period Temp Pulse Resp BP Sys/Pagan Pulse Ox Last 24 Hr 97.7 F-98.8 F 73-97 13-20 120-159/61-87 97-100 PE Neuro: alert, awake, cn 2-12intact HEENT: R infraorbital ecchymosis- improving Pulm: clear anteriorly CV: s1 s2 rrr no mrg Abd: s nt nd + bs Ext: R hip dressing CDI, + wedge place + tenderness to palpation Laboratory Results - last 24 hr 05/13/17 05/13/17 05:24 05:24 WBC 15.6 H D RBC 4.09 Hgb 11.1 Hct 34.9 MCV 85.3 MCH 27.0 MCHC 31.7 L RDW 14.2 Plt Count 328 MPV 8.5 Sodium 135 L Potassium 5.0 D Chloride 103 Carbon Dioxide 22 Anion Gap 10 BUN 24 H Creatinine 0.7 Random Glucose 103 Calcium 8.6 Active Medications Generic Name Dose Route Start Last Admin Trade Name Freq PRN Reason Stop Dose Admin Acetaminophen 650 mg 05/12/17 22:33 Tylenol - PO Q4H PRN FEVER OR PAIN Alprazolam 0.5 mg 05/12/17 22:33 Xanax - PO DAILY PRN ANXIETY Artificial Tears 1 drop 05/13/17 10:00 05/13/17 10:44 Artificial Tears OU 1 drop DAILY CARITO Administration Atorvastatin Calcium 40 mg 05/13/17 22:00 Lipitor - PO HS [facility] Calcium Carbonate/Cholecalciferol 2 tab 05/13/17 10:00 05/13/17 10:45 Os-Jones 500+D - PO 2 tab DAILY CARITO Administration Enoxaparin Sodium 40 mg 05/14/17 08:00 Lovenox - SQ DAILY CARITO Escitalopram Oxalate 20 mg 05/13/17 10:00 05/13/17 10:44 Lexapro - PO 20 mg DAILY CARITO Administration Sodium Chloride 1,000 mls @ 50 mls/hr 05/13/17 09:56 1/2 Normal Saline IV ASDIR CARITO Lisinopril 10 mg 05/13/17 10:00 05/13/17 10:43 Prinivil PO 10 mg DAILY CARITO Administration Metoprolol Succinate 12.5 mg 05/13/17 10:15 Toprol Xl - PO DAILY CARITO Morphine Sulfate 2 mg 05/12/17 22:33 05/13/17 10:45 Morphine Injection - IVPUSH 2 mg Q4H PRN Administration PAIN Senna 1 tab 05/13/17 22:00 Senna - PO HS CARITO Assessment: 86 year old female with HTN HLD, CVA, dementia admitted s/p fall in [place] last Thursday, found to have right hip fracture Plan: 1. Acute R femoral neck fracture - s/p R hip hemiarthroplasty 05/12 - Lovenox 40mg daily x 1 month - PT daily - Pain control - SNF for rehab - Monitor CBC, expect mild decrease in h/h, d/w ortho 2. CAD s/p ?stent/ [place] - Hx unclear of stent placement, pt recalls cardiac cath - Start low dose toprol 12.5mg daily - ECHO ordered 3. HTN - Lisinopril 10mg daily 4. hx CVA - Resume ASA - Discontinue Plavix 5. HLD - Decreased lipitor 40mg HS 6. Depression - Lexapro 20mg daily 7. DVT ppx - Lovenox sq Dispo: - Like DC SNF Thursday Problem List - Problems (1) Accidental fall Code(s): W19.XXXA - UNSPECIFIED FALL, INITIAL ENCOUNTER Qualifiers: Encounter type: initial encounter Qualified Code(s): W19.XXXA - Unspecified fall, initial encounter (2) Femoral neck fracture Code(s): S72.009A - FRACTURE OF UNSP PART OF NECK OF UNSP FEMUR, INIT Qualifiers: Encounter type: initial encounter Fracture type: closed Laterality: right Qualified Code(s): S72.001A - Fracture of unspecified part of neck of right femur, initial encounter for closed fracture (3) Injury of right hip Code(s): S79.911A - UNSPECIFIED INJURY OF RIGHT HIP, INITIAL ENCOUNTER Qualifiers: Encounter type: initial encounter Qualified Code(s): S79.911A - Unspecified injury of right hip, initial encounter (4) CVA (cerebral infarction) Code(s): I63.9 - CEREBRAL INFARCTION, UNSPECIFIED Qualifiers: Cerebral infarction mechanism: unspecified mechanism Qualified Code(s): I63.9 - Cerebral infarction, unspecified (5) Dementia Code(s): F03.90 - UNSPECIFIED DEMENTIA WITHOUT BEHAVIORAL DISTURBANCE (6) Depression Code(s): F32.9 - MAJOR DEPRESSIVE DISORDER, SINGLE EPISODE, UNSPECIFIED (7) Hyperlipemia Code(s): E78.5 - HYPERLIPIDEMIA, UNSPECIFIED Qualifiers: Hyperlipidemia type: pure hypercholesterolemia Qualified Code(s): E78.00 - Pure hypercholesterolemia, unspecified; E78.0 - Pure hypercholesterolemia Visit type - Emergency Visit Emergency Visit: Yes ED Registration Date: 05/11/17 Care time: The patient presented to the Emergency Department on the above date and was hospitalized for further evaluation of their emergent condition. - New Patient This patient is new to me today: No - Critical Care Critical Care patient: No
[2017-05-13] MEDS: METOPROLOL SUCCINATE 25 MG TAB.SR.24H (FP) PO SCH (15:48)
[2017-05-13] MEDS: SODIUM CHLORIDE 0.45% 1,000 ML IV SCH ×2 (15:50→21:30)
--- NOTE | 2017-05-13 16:18 | PN ---
Progress Note, Physician History of Present Illness: Post-op pain adequately controlled. She denies chest pain or dyspnea. - Current Medication List Current Medications: Active Medications Acetaminophen (Tylenol -) 650 mg PO Q4H PRN PRN Reason: FEVER OR PAIN Alprazolam (Xanax -) 0.5 mg PO DAILY PRN PRN Reason: ANXIETY Artificial Tears (Artificial Tears) 1 drop OU DAILY REPLACED BY [facility] Last Admin: 05/13/17 10:44 Dose: 1 drop Atorvastatin Calcium (Lipitor -) 40 mg PO HS REPLACED BY [facility] Calcium Carbonate/Cholecalciferol (Os-Jones 500+D -) 2 tab PO DAILY REPLACED BY [facility] Last Admin: 05/13/17 10:45 Dose: 2 tab Enoxaparin Sodium (Lovenox -) 40 mg SQ DAILY REPLACED BY [facility] Escitalopram Oxalate (Lexapro -) 20 mg PO DAILY REPLACED BY [facility] Last Admin: 05/13/17 10:44 Dose: 20 mg Sodium Chloride (1/2 Normal Saline) 1,000 mls @ 50 mls/hr IV ASDIR REPLACED BY [facility] Last Admin: 05/13/17 15:50 Dose: Not Given Lisinopril (Prinivil) 10 mg PO DAILY REPLACED BY [facility] Last Admin: 05/13/17 10:43 Dose: 10 mg Metoprolol Succinate (Toprol Xl -) 12.5 mg PO DAILY REPLACED BY [facility] Last Admin: 05/13/17 15:48 Dose: 12.5 mg Morphine Sulfate (Morphine Injection -) 2 mg IVPUSH Q4H PRN PRN Reason: PAIN Last Admin: 05/13/17 10:45 Dose: 2 mg Senna (Senna -) 1 tab PO [facility] - Objective Vital Signs: Vital Signs Temperature 99.7 F H 05/13/17 14:47 Pulse Rate 103 H 05/13/17 14:47 Respiratory Rate 20 05/13/17 09:00 Blood Pressure 128/73 05/13/17 14:47 O2 Sat by Pulse Oximetry (%) 98 05/13/17 09:00 Constitutional: Yes: No Distress, Calm Neck: Yes: Supple Cardiovascular: Yes: Regular Rate and Rhythm Respiratory: Yes: Regular, Diminished Gastrointestinal: Yes: Normal Bowel Sounds, Soft Edema: No Labs: CBC, BMP 05/13/17 05:24 05/13/17 05:24 INR, PTT INR 1.08 (0.82-1.09) 05/12/17 07:45 Problem List - Problems (1) History of right hip hemiarthroplasty Code(s): Z96.641 - PRESENCE OF RIGHT ARTIFICIAL HIP JOINT (2) CAD (coronary artery disease) Code(s): I25.10 - ATHSCL HEART DISEASE OF [place] CORONARY ARTERY W/O ANG PCTRS Qualifiers: Coronary Disease-Associated Artery/Lesion type: [place] artery [place] vs. transplanted heart: [place] heart Associated angina: without angina Qualified Code(s): I25.10 - Atherosclerotic heart disease of [place] coronary artery without angina pectoris (3) HTN (hypertension) Code(s): I10 - ESSENTIAL (PRIMARY) HYPERTENSION Qualifiers: Hypertension type: essential hypertension Qualified Code(s): I10 - Essential (primary) hypertension (4) CVA (cerebral infarction) Code(s): I63.9 - CEREBRAL INFARCTION, UNSPECIFIED Qualifiers: Cerebral infarction mechanism: unspecified mechanism Qualified Code(s): I63.9 - Cerebral infarction, unspecified (5) Hyperlipemia Code(s): E78.5 - HYPERLIPIDEMIA, UNSPECIFIED Qualifiers: Hyperlipidemia type: pure hypercholesterolemia Qualified Code(s): E78.00 - Pure hypercholesterolemia, unspecified; E78.0 - Pure hypercholesterolemia (6) History of percutaneous coronary intervention Code(s): Z98.890 - OTHER SPECIFIED POSTPROCEDURAL STATES Assessment/Plan 1. POD 1 R hip hemiarthroplasty, stable CV-zapata 2. Possible syncope 3. CAD s/p PCI/stent, angina 4. Hypertension 5. Hypercholesterolemia 6. Organic brain/dementia PLAN: 1. Continue Lipitor 40 qhs, lisinopril 10qd, Toprol XL 12.5 qd, resume ASA 81 qd 2. Analgesia as needed, PT, rehab, DVT prophylaxis 3. F/u transthoracic echocardiography to assess LV/RV and valvular function
[2017-05-13] MEDS ORDERED: SENNOSIDES 8.6MG TABLET (FP) PO SCH (22:00)
[2017-05-13] MEDS ORDERED: ATORVASTATIN CA 40 MG TABLET (FP) PO SCH (22:00)
[2017-05-14 08:44] LABS: HEMATOCRIT 30.8 % (32.4-45.2); HEMOGLOBIN 9.9 GM/dL (10.7-15.3); MCH 27.4 pg (25.7-33.7); MCHC 32.3 g/dl (32.0-36.0); MEAN CELL VOLUME 84.8 fl (80-96); MEAN PLT VOLUME 7.8 fl (7.5-11.1); PLATELET COUNT 304 K/MM3 (134-434); RBC 3.63 M/mm3 (3.60-5.2); RDW 13.9 % (11.6-15.6); WHITE BLOOD COUNT 11.6 K/mm3 (4.0-10.0)
[2017-05-14] MEDS ORDERED: oxyCODONE HCL 5 MG TABLET PO PRN (09:11)
[2017-05-14] MEDS ORDERED: ESCITALOPRAM OXALATE 10 MG TABLET (FP) ONE (09:15)
[2017-05-14] MEDS ORDERED: PT OWN MED DRAWER 7, Y5N ONE (09:16)
[2017-05-14] MEDS: CALCIUM 500MG/VIT-D 200 UNITS COMBO TABLET (FP) PO SCH (09:17)
[2017-05-14] MEDS: METOPROLOL SUCCINATE 25 MG TAB.SR.24H (FP) PO SCH (09:18)
[2017-05-14] MEDS: ENOXAPARIN NA (PORCINE) 40 MG/0.4 ML DISP.SYRIN SQ SCH ×2 (09:18→10:09)
[2017-05-14] MEDS: LISINOPRIL 10 MG TABLET (FP) PO SCH (09:18)
[2017-05-14] MEDS: ESCITALOPRAM OXALATE 20 MG TABLET (FP) PO SCH (09:18)
[2017-05-14] MEDS: ARTIFICIAL TEARS (POLYVINYL ALCOHOL 1.4%) OPTH DROPS OU SCH (09:19)
[2017-05-14] MEDS ORDERED: ASPIRIN 81 MG CHEWABLE TABLETS PO SCH (10:00)
[2017-05-14] MEDS: SODIUM CHLORIDE 0.45% 1,000 ML IV SCH (10:22)
--- NOTE | 2017-05-14 11:53 | PN ---
Progress Note, Physician History of Present Illness: Post-op pain adequately controlled. She denies chest pain or dyspnea, started PT. - Current Medication List Current Medications: Active Medications Acetaminophen (Tylenol -) 650 mg PO Q4H PRN PRN Reason: FEVER OR PAIN Last Admin: 05/13/17 21:36 Dose: 650 mg Alprazolam (Xanax -) 0.5 mg PO DAILY PRN PRN Reason: ANXIETY Artificial Tears (Artificial Tears) 1 drop OU DAILY [facility] Last Admin: 05/14/17 09:19 Dose: 1 drop Aspirin (Asa -) 81 mg PO DAILY [facility] Last Admin: 05/14/17 09:18 Dose: 81 mg Atorvastatin Calcium (Lipitor -) 40 mg PO HS [facility] Last Admin: 05/13/17 21:36 Dose: 40 mg Calcium Carbonate/Cholecalciferol (Os-Jones 500+D -) 2 tab PO DAILY [facility] Last Admin: 05/14/17 09:17 Dose: 2 tab Enoxaparin Sodium (Lovenox -) 40 mg SQ DAILY [facility] Last Admin: 05/14/17 10:09 Dose: Not Given Escitalopram Oxalate (Lexapro -) 20 mg PO DAILY [facility] Last Admin: 05/14/17 09:18 Dose: 20 mg Sodium Chloride (1/2 Normal Saline) 1,000 mls @ 50 mls/hr IV ASDIR [facility] Last Admin: 05/14/17 10:22 Dose: Not Given Lisinopril (Prinivil) 10 mg PO DAILY [facility] Last Admin: 05/14/17 09:18 Dose: 10 mg Metoprolol Succinate (Toprol Xl -) 12.5 mg PO DAILY [facility] Last Admin: 05/14/17 09:18 Dose: 12.5 mg Oxycodone HCl (Roxicodone -) 5 mg PO Q6H PRN PRN Reason: PAIN LEVEL 6-10 Last Admin: 05/14/17 10:16 Dose: 5 mg Senna (Senna -) 1 tab PO [facility] Last Admin: 05/13/17 21:36 Dose: 1 tab - Objective Vital Signs: Vital Signs Temperature 98.5 F 05/14/17 05:49 Pulse Rate 87 05/14/17 05:49 Respiratory Rate 20 05/14/17 05:49 Blood Pressure 136/66 05/14/17 05:49 O2 Sat by Pulse Oximetry (%) 98 05/13/17 09:00 Constitutional: Yes: No Distress, Calm Neck: Yes: Supple Cardiovascular: Yes: Regular Rate and Rhythm Respiratory: Yes: Regular, Diminished, On Nasal O2 Gastrointestinal: Yes: Normal Bowel Sounds, Soft Edema: No Labs: CBC, BMP 05/14/17 07:55 05/13/17 05:24 INR, PTT INR 1.08 (0.82-1.09) 05/12/17 07:45 Problem List - Problems (1) History of right hip hemiarthroplasty Code(s): Z96.641 - PRESENCE OF RIGHT ARTIFICIAL HIP JOINT (2) CAD (coronary artery disease) Code(s): I25.10 - ATHSCL HEART DISEASE OF [place] CORONARY ARTERY W/O ANG PCTRS Qualifiers: Coronary Disease-Associated Artery/Lesion type: [place] artery [place] vs. transplanted heart: [place] heart Associated angina: without angina Qualified Code(s): I25.10 - Atherosclerotic heart disease of [place] coronary artery without angina pectoris (3) HTN (hypertension) Code(s): I10 - ESSENTIAL (PRIMARY) HYPERTENSION Qualifiers: Hypertension type: essential hypertension Qualified Code(s): I10 - Essential (primary) hypertension (4) CVA (cerebral infarction) Code(s): I63.9 - CEREBRAL INFARCTION, UNSPECIFIED Qualifiers: Cerebral infarction mechanism: unspecified mechanism Qualified Code(s): I63.9 - Cerebral infarction, unspecified (5) Hyperlipemia Code(s): E78.5 - HYPERLIPIDEMIA, UNSPECIFIED Qualifiers: Hyperlipidemia type: pure hypercholesterolemia Qualified Code(s): E78.00 - Pure hypercholesterolemia, unspecified; E78.0 - Pure hypercholesterolemia (6) History of percutaneous coronary intervention Code(s): Z98.890 - OTHER SPECIFIED POSTPROCEDURAL STATES Assessment/Plan 05/12/2017 Echo: Normal biventricular size and fxn, tr MR, TR 1. POD 2 R hip hemiarthroplasty, stable CV-zapata 2. Possible syncope 3. CAD s/p PCI/stent, angina 4. Hypertension 5. Hypercholesterolemia 6. Organic brain/dementia PLAN: 1. Continue Lipitor 40 qhs, lisinopril 10qd, Toprol XL 12.5 qd, and ASA 81 qd 2. Analgesia as needed, PT, rehab, DVT prophylaxis
--- NOTE | 2017-05-14 12:16 | DS ---
Physical Exam: SUBJECTIVE: Patient seen and examined at the bedside. Denies any pain or discomfort. OBJECTIVE: Vital Signs Period Temp Pulse Resp BP Sys/Pagan Pulse Ox Last 24 Hr 98.5 F-99.7 F 87-103 20 128-152/66-77 PHYSICAL EXAM GENERAL: The patient is awake, alert, in no acute distress. HEAD: Normal with no signs of trauma. EYES: PERRL, extraocular movements intact, sclera anicteric, conjunctiva clear. ENT: Ears normal, nares patent, oropharynx clear without exudates, moist mucous membranes. NECK: Trachea midline, full range of motion, supple. LUNGS: Breath sounds diminished/clear to auscultation HEART: Regular rate and rhythm ABDOMEN: Soft, nontender, nondistended, normoactive bowel sounds, no guarding, no rebound, no hepatosplenomegaly, no masses. EXTREMITIES: no edema. NEUROLOGICAL: Normal speech. PSYCH: Normal mood, normal affect. SKIN: s/p R hip hemiarthroplasty 05/12/2017 LABS Laboratory Results - last 24 hr 05/14/17 07:55 WBC 11.6 H RBC 3.63 Hgb 9.9 L D Hct 30.8 L MCV 84.8 MCH 27.4 MCHC 32.3 RDW 13.9 Plt Count 304 MPV 7.8 HOSPITAL COURSE: Date of Admission:05/11/17 Date of Discharge: 05/14/17 Patient is an 86 year old female with a significant past medical history of hypertension, hld, CVA and dementia. She was admitted on 05/11/2017 [facility]. She was found to have a right hip fracture. Muscular/Skeletal: Acute R femoral neck fracture s/p surgical repair on 05/12/2017 Continue Lovenox 40mg daily for 1 month > 2017 Daily physical therapy, more often as tolerated Control pain with Oxycodone prn Monitor labs Fall precautions Cardiology: CAD s/p stent/ NV On Metoprolol 12.5 daily ASA 81mg daily Lipitor 40mg at HS Lisinopril 10mg daily HTN Lisinopril 10mg daily hx CVA Resume ASA 81mg daily, Discontinue Plavix HLD Lipitor 40mg HS Psyche: Depression Lexapro 20mg daily disposition: discharge to [facility] for rehab. Lovenox 40mg daily for 1 month as post surgery prophylaxis. Minutes to complete discharge: 60 Discharge Summary Reason For Visit: FRACTURE OF NECK OF FEMUR Current Active Problems Accidental fall (Acute) CAD (coronary artery disease) (Acute) Femoral neck fracture (Acute) HTN (hypertension) (Acute) History of percutaneous coronary intervention (Acute) History of right hip hemiarthroplasty (Acute) Injury of right hip (Acute) Percutaneous transluminal coronary angioplasty (PTCA) within last 14 to 24 months (Acute) Condition: Improved - Instructions Diet, Activity, Other Instructions: Mrs. Ibarra: Please continue the following new medications as prescribed: Continue Lipitor 40mg qhs Lisinopril 10mg daily Toprol 12.5 mg daily Aspirin 81mg daily Lovenox 40mg daily until 06/14/2017 (post surgery prophylaxis) Please call with any questions that you may have [facility] [phone] Referrals: Corine Turpin MD [Primary Care Provider] - Disposition: LONG TERM FACILITY - Home Medications Comprehensive Discharge Medication List: Ambulatory Orders Escitalopram Oxalate [Lexapro -] 20 mg PO DAILY 10/25/13 Simvastatin [Zocor -] 80 mg PO HS 10/25/13 Sennosides [Senna -] 1 tab PO HS 10/09/14 Acetaminophen 650 mg PO Q4H PRN 05/11/17 Ergocalciferol [Vitamin D2] 50,000 unit PO MONTHLY 05/11/17 Hypromellose 0.5% Opth Soln [Artificial Tears] 1 drop OU DAILY 05/11/17 Ondansetron HCl [Zofran] 4 mg PO ASDIR PRN 05/11/17 Alprazolam [Xanax] 0.5 mg PO DAILY PRN #30 tablet MDD 1 tab 05/14/17 Aspirin [ASA -] 81 mg PO DAILY tab.chew 05/14/17 Atorvastatin Ca [Lipitor] 40 mg PO HS tablet 05/14/17 Enoxaparin [Lovenox -] 40 mg SQ DAILY #30 disp.syrin 05/14/17 Lisinopril [Prinivil] 10 mg PO DAILY tablet 05/14/17 Metoprolol Succinate [Toprol XL -] 12.5 mg PO DAILY #30 tab.sr.24h 05/14/17 Oxycodone HCl [Roxicodone -] 5 mg PO Q6H PRN #20 tablet MDD 4 tabs 05/14/17 This patient is new to me today: Yes Date on this admission: 05/14/17 Emergency Visit: Yes ED Registration Date: 05/11/17 Care time: The patient presented to the Emergency Department on the above date and was hospitalized for further evaluation of their emergent condition. Critical Care patient: No - Discharge Referral Referred to [facility] No
[2017-05-14 14:23] VITALS: BP 140/56; PULSE 66; TEMP 97.9
--- NOTE | 2017-05-15 15:45 | PATH ---
Surgical Pathology Report Patient Name: KAYLYNN MEDEIROS Med. Rec. #: [id number] /Age/Gender: 1930 (Age: 86) / F Account: [id number] Location: [address] [place] [address]/[facility] Taken: 05/12/2017 Received: 05/13/2017 Reported: 05/15/2017 Physicians: Jeanne Denson ACNP Specimen(s) Received RIGHT FEMORAL HEAD Clinical History Fracture of neck of femur Final Diagnosis BONE, RIGHT FEMORAL HEAD, REPLACEMENT: BONE WITH INTERSTITIAL HEMORRHAGE CONSISTENT WITH FRACTURE. CHANGES CONSISTENT WITH DEGENERATIVE JOINT DISEASE PRESENT. Electronically Signed Lenin Schmid M.D. Gross Description Received in formalin labeled "femoral head right," is a 4.3 x 4.3 x 3.8 cm femoral head with no femoral neck attached. The margin of resection is red-brown, jagged and hemorrhagic. The remaining articular surface is focally granular. The underlying trabecular bone is yellow, hard and focally hemorrhagic. A home furnishings sales representative section is submitted in one cassette, following decalcification. /05/14/2017 [facility]05/14/2017
== END 2017-05-14 16:35 | DRG 470 ==
LOC: JER 09:55 → JERBED 12:28 → J6S 18:53
PROVIDERS: ADMIT Internal Medicine; ATTEND Nurse Practitioner Family
PROC: 0SR90JA Replacement of Right Hip Joint with Synthetic Substitute, Uncemented, Open Approach (ICD-10-PCS; principal; 2017-05-12 18:30)
DX: S72.001A Fracture of unspecified part of neck of right femur, initial encounter for closed fracture (principal); W06.XXXA Fall from bed, initial encounter; Y93.9 Activity, unspecified; Y92.122 Bedroom in nursing home as the place of occurrence of the external cause; Y99.9 Unspecified external cause status; F03.90 Unspecified dementia, unspecified severity, without behavioral disturbance, psychotic disturbance, mood disturbance, and anxiety; I10 Essential (primary) hypertension; E78.5 Hyperlipidemia, unspecified; F32.9 Major depressive disorder, single episode, unspecified; Z86.73 Personal history of transient ischemic attack (TIA), and cerebral infarction without residual deficits; Z98.61 Coronary angioplasty status; I25.119 Atherosclerotic heart disease of native coronary artery with unspecified angina pectoris
CPT/HCPCS: 36415; 70450-TC; 71045-TC; 72170-TC; 73502-TC-RT; 73523-TC; 80048; 80053; 85025; 85027; 85610; 85730; 86850; 86900; 86901; 88305-TC; 88311-TC; 93005; 93010; 93306-TC; 94010; 94760; 97116-GP; 97161-GP; 99283-25

== ENCOUNTER 2018-06-06 12:12 | Inpatient (IN) | payer OTHER ==
--- NOTE | 2018-06-06 12:18 | PDOC ---
Attending Attestation - HPI HPI: 06/06/18 12:46 The patient is an 87 year old female with a PMH of HTN, depression, syncope, HLD , CVA, PVD, dementia, osteopetrosis, and history of falls sent in from [facility] for a fall this morning. As per the AL, the patient was found face down in her room at approximately 10:15 AM. She reports that she feel dizzy when she was walking to the bathroom at 10:15AM and fell forward. Patient complained that she was feeling nauseated this morning, but did not vomit. Patient also admits to have a cough over the past few days. Patient was noted to have a 2CM laceration above the left eye with ecchymosis and 3CM laceration between the 2nd and 2rd digit on the left hand. Patient is wheelchair bound. Patient is DNR. The patient denies chest pain, shortness of breath, headache and dizziness. Denies fever, chills, nausea, vomit, diarrhea and constipation. Denies dysuria, frequency, urgency and hematuria. Allergies: NKA Past surgical history: None reported. Social history: No reported alcohol, drug or cigarette use. PCP: Dr. Boyce - Physicial Exam PE: 06/06/18 12:55 ADULT PHYSICAL EXAM Constitutional: Awake, alert, oriented. No acute distress. Head: Normocephalic. Atraumatic Eyes: PERRL. EOMI. Conjunctivae are not pale. ENT: Mucous membranes are moist and intact. No nasal bleeding. Neck: Supple. Full ROM. No lymphadenopathy. No neck stiffness. Cardiovascular: Regular rate. Regular rhythm. S1, S2 regular. Distal pulses are 2+ and symmetric. Pulmonary/Chest: No evidence of respiratory distress. (+) Wheezing bilaterally. Abdominal: Soft and non-distended. There is no tenderness. No rebound, guarding or rigidity. Back: No CVA tenderness. No C, T, or L spine tenderness. No paraspinal tenderness. Musculoskeletal: Pelvic is stable. Moving all extremities. Skin: (+) 2cm, stellate laceration above the left eyebrow; no active bleeding. ( +) Hematoma to the left forehead. (+) 2.5cm laceration, v-shaped, between the 2nd and 3rd digit. No active bleeding. Neurological: Alert and oriented to person, place, and time. Cranial nerves II -XII are grossly intact. Strength is grossly symmetric. Psychiatric: Good eye contact. Normal interaction, affect and behavior. <Margaux Ruffin - Last Filed: 06/06/18 12:58> - Resident Resident Name: Reece Veras - ED Attending Attestation I have performed the following: I have examined & evaluated the patient, The case was reviewed & discussed with the resident, I agree w/resident's findings & plan, Exceptions are as noted - Medical Decision Making 06/06/18 12:18 I, Dr. Inga Sexton, DO, attest that this document has been prepared under my direction and personally reviewed by me in its entirety. I further attest, that it accurately reflects all work, treatment, procedures and medical decision -making performed by me. 06/06/18 12:34 87yo female s/p mechanical fall, however per report was near syncope this am -facial lac and bruising -unwitness fall -will need head, facial bones, c spine ct -xray chest and ankle -has had recent cough x days - poss pna -wheezing on exam -will give neb -ekg -will most likely need admission 06/06/18 13:46 resident performed suturing 06/06/18 15:17 head, c spine, facial ct negative for acute findings 06/06/18 15:50 pt found down concern for syncope closed head injury distal radius fx- will place in a splint foot fx- will place in a splint microblog sent to [facility] for obs 06/06/18 16:[address] Rogers who accepts pt to service <Inga Sexton - Last Filed: 06/06/18 16:05> *DC/Admit/Observation/Transfer <Margaux Ruffin - Last Filed: 06/06/18 12:58> - Discharge Dispostion Decision to Admit order: Yes <Inga Sexton - Last Filed: 06/06/18 16:05> Diagnosis at time of Disposition: Dementia, Near syncope, Closed head injury, Facial laceration, Hand laceration , Distal radius fracture, left, Foot fracture, left Fall Qualifiers: Encounter type: initial encounter Qualified Code(s): W19.XXXA - Unspecified fall, initial encounter - Discharge Dispostion Condition at time of disposition: Guarded - Referrals Referrals: Amadeo Boyce MD [Primary Care Provider] - - Patient Instructions - Post Discharge Activity Heart Score/ECG Review - ECG Intrepretation Comment:: 06/06/18 12:43 sinus at 82, nl axis, nl interval, t wave flattening diffusely, q waves inferior leads that are age indeterminate, no acute findings <Inga Sexton - Last Filed: 06/06/18 16:05>
[2018-06-06] MEDS ORDERED: ACETAMINOPHEN 1000 MG/100 ML VIAL (NON FORMULARY) IVPB ONE (12:20)
--- NOTE | 2018-06-06 12:21 | PDOC ---
History of Present Illness - General Stated Complaint: FELL/HEAD INJURY Time Seen by Provider: 06/06/18 12:16 - History of Present Illness Initial Comments: 06/06/18 12:16 Ms. Ibarra is an 87 yo female w/ pmh of HTN, HLD, depression, syncopal episodes , CVA, PVD, dementia, osteopetrosis, frequent falls who presents for evaluation after fall earlier today. Patient reports she was walking back from the bathroom without assistance when she felt dizzy and fell forward onto her face. Patient is supposed to be accompanied while walking at all times. Currently complaining of left wrist and left ankle pain. Past History - Past Medical History Allergies/Adverse Reactions: Allergies Allergy/AdvReac Type Severity Reaction Status Date / Time No Known Drug Allergies Allergy Verified 05/11/17 10:19 Home Medications: Ambulatory Orders Escitalopram Oxalate [Lexapro -] 20 mg PO DAILY 10/25/13 Simvastatin [Zocor -] 40 mg PO HS 10/25/13 Sennosides [Senna -] 1 tab PO HS 10/09/14 Acetaminophen 1,000 mg PO ASDIR PRN 05/11/17 Ergocalciferol [Vitamin D2] 50,000 unit PO MONTHLY 05/11/17 Lisinopril [Prinivil] 10 mg PO DAILY tablet 05/14/17 Aspirin [ASA -] 81 mg PO DAILY 06/06/18 Polyvinyl Alcohol [Artificial Tears] 1 drop OD BID 06/06/18 Anemia: No Asthma: No Cancer: No Cardiac Disorders: No CVA: Yes COPD: No CHF: No DVT: No Dementia: Yes (can sign own consent) Diabetes: No GI Disorders: No Disorders: No HTN: Yes Hypercholesterolemia: Yes Liver Disease: No Psychiatric Problems: Yes (dementia,anxiety,major depression) Seizures: No Thyroid Disease: No - Surgical History Abdominal Surgery: No Appendectomy: No Cardiac Surgery: No Cholecystectomy: No Lung Surgery: No Neurologic Surgery: No Orthopedic Surgery: Yes (right fracture ankle) - Suicide/Smoking/Psychosocial Hx Smoking History: Never smoked Have you smoked in the past 12 months: No Hx Alcohol Use: No Drug/Substance Use Hx: No Substance Use Type: None Hx Substance Use Treatment: No Review of Systems - Review of Systems Comments:: 06/06/18 12:51 GENERAL/CONSTITUTIONAL: No fever or chills. No weakness. HEAD, EYES, EARS, NOSE AND THROAT: No change in vision. No ear pain or discharge. No sore throat. CARDIOVASCULAR: No chest pain or shortness of breath RESPIRATORY: No cough, wheezing, or hemoptysis. GASTROINTESTINAL: No nausea, vomiting, diarrhea or constipation. GENITOURINARY: No dysuria, frequency, or change in urination. MUSCULOSKELETAL: +Left ankle and wrist pain as described. SKIN: No rash NEUROLOGIC: No headache, vertigo, loss of consciousness, or change in strength/ sensation. ENDOCRINE: No increased thirst. No abnormal weight change HEMATOLOGIC/LYMPHATIC: No anemia, easy bleeding, or history of blood clots. ALLERGIC/IMMUNOLOGIC: No hives or skin allergy. *Physical Exam - Physical Exam Comments: 06/06/18 12:51 GENERAL: Awake, alert, and fully oriented, in no acute distress HEAD: +2 cm laceration noted to L forehead. No signs of trauma, normocephalic, atraumatic EYES: PERRLA, EOMI, sclera anicteric, conjunctiva clear ENT: Auricles normal inspection, hearing grossly normal, nares patent, oropharynx clear without exudates. Moist mucosa NECK: Normal ROM, supple, no lymphadenopathy, JVD, or masses LUNGS: No distress, speaks full sentences, clear to auscultation bilaterally HEART: Regular rate and rhythm, normal S1 and S2, no murmurs, rubs or gallops, peripheral pulses normal and equal bilaterally. ABDOMEN: Soft, nontender, normoactive bowel sounds. No guarding, no rebound. No masses EXTREMITIES: +3 cm laceration noted to webbing between 2nd and 3rd finger. Normal inspection, Normal range of motion, no edema. No clubbing or cyanosis. NEUROLOGICAL: Cranial nerves II through XII grossly intact. Normal speech, normal gait, no focal sensorimotor deficits SKIN: Warm, Dry, normal turgor, no rashes or lesions noted. ED Treatment Course - LABORATORY CBC & Chemistry Diagram: 06/06/18 12:37 06/06/18 12:37 Medical Decision Making - Medical Decision Making 06/06/18 15:17 Ms. Ibarra is an 87 yo female w/ pmh as described who presents s/p unwitnessed fall earlier today. Patient oriented to baseline however lacerations noted as above. Patient evaluated with Head, Face, C-spine CT (all negative). Patient currently pending further XR evaluation. Patient will likely be admitted for overnight observation for further monitoring and care. 06/06/18 16:18 Patient admitted to hospitalist for overnight observation. Patient noted to have distal radius fracture (L) and concern for navicular fracture (L ankle). Patient L wrist reduced w/ traction and placed in volar splint. Patient likewise placed in posterior L foot splint. Post reduction film ordered for wrist. Patient neurovascularly intact following reduction. *DC/Admit/Observation/Transfer Diagnosis at time of Disposition: Near syncope Fall Qualifiers: Encounter type: initial encounter Qualified Code(s): W19.XXXA - Unspecified fall, initial encounter Dementia Qualifiers: Dementia type: unspecified type Dementia behavioral disturbance: without behavioral disturbance Qualified Code(s): F03.90 - Unspecified dementia without behavioral disturbance Closed head injury Qualifiers: Encounter type: initial encounter Qualified Code(s): S09.90XA - Unspecified injury of head, initial encounter Facial laceration Qualifiers: Encounter type: initial encounter Qualified Code(s): S01.81XA - Laceration without foreign body of other part of head, initial encounter Hand laceration Qualifiers: Encounter type: initial encounter Laterality: left Distal radius fracture, left Qualifiers: Encounter type: initial encounter Fracture type: closed Fracture morphology: unspecified fracture morphology Qualified Code(s): S52.502A - Unspecified fracture of the lower end of left radius, initial encounter for closed fracture Foot fracture, left Qualifiers: Encounter type: initial encounter Fracture type: closed Qualified Code(s): S92.902A - Unspecified fracture of left foot, initial encounter for closed fracture - Discharge Dispostion Decision to Admit order: Yes - Referrals Referrals: Amadeo Boyce MD [Primary Care Provider] - - Patient Instructions - Post Discharge Activity
[2018-06-06] MEDS ORDERED: ACETAMINOPHEN INJECTION 100 ML IVPB ONE (12:29)
[2018-06-06] MEDS ORDERED: DIPHTH,PERTUSS(ACELL),TET 0.5 ML DISP.SYRIN IM ONE ×2 (12:30→13:29)
[2018-06-06] MEDS ORDERED: ALBUTEROL SO4 2.5/IPRATROPIUM 0.5 INH SOL 3 ML VIAL.NEB. NEB ONE ×2 (12:31→13:28)
[2018-06-06] MEDS ORDERED: SODIUM CHLORIDE 1,000 ML IV STA (12:32)
[2018-06-06] MEDS ORDERED: LIDOCAINE HCL 1%, 10 MG/ML (20ML VIAL) ONE (12:37)
[2018-06-06 12:50] LABS: BASO % 0.5 % (0-2.0); EOS % 1.1 % (0-4.5); HEMOGLOBIN 13.9 GM/dL (10.7-15.3); LYMPH % 7.5 % (8-40); MCH 30.2 pg (25.7-33.7); MCHC 33.9 g/dl (32.0-36.0); MEAN CELL VOLUME 89.1 fl (80-96); MONO % 10.2 % (3.8-10.2); NEUT % 80.7 % (42.8-82.8); PLATELET COUNT 268 K/MM3 (134-434); RDW 14.2 % (11.6-15.6); WHITE BLOOD COUNT 10.4 K/mm3 (4.0-10.0)
[2018-06-06 13:09] LABS: PROTHROMBIN TIME (PATIENT) 11.8 SEC (9.7-13.0)
[2018-06-06 13:12] LABS: ACTIVATED PTT 29.1 SECONDS (25.2-36.5)
[2018-06-06 13:23] LABS: ALBUMIN 3.4 g/dl (3.4-5.0); ALK PHOS 96 U/L (45-117); ANION GAP 9 MMOL/L (8-16); BILIRUBIN,TOTAL 0.3 mg/dL (0.2-1); BLOOD UREA NITROGEN 18 mg/dL (7-18); CALCIUM 9.1 mg/dL (8.5-10.1); CHLORIDE 104 mmol/L (98-107); CO2 27 mmol/L (21-32); CREATININE 0.9 mg/dL (0.55-1.3); GLUCOSE,RANDOM 95 mg/dL (74-106); SGOT/AST 34 U/L (15-37); SGPT/ALT 42 U/L (13-61); SODIUM 140 mmol/L (136-145); TOT PROT 7.1 g/dl (6.4-8.2)
--- NOTE | 2018-06-06 15:32 | EKG ---
Test Reason : Blood Pressure : / mmHG Vent. Rate : 082 BPM Atrial Rate : 082 BPM P-R Int : 170 ms QRS Dur : 094 ms QT Int : 404 ms P-R-T Axes : 024 006 060 degrees QTc Int : 472 ms NORMAL SINUS RHYTHM LOW VOLTAGE QRS INFERIOR INFARCT (CITED ON OR BEFORE 11-MAY-2017) ABNORMAL ECG WHEN COMPARED WITH ECG OF 11-MAY-2017 11:29, NO SIGNIFICANT CHANGE WAS FOUND Confirmed by DEEPAK MORRISON MD ([id number]) on 06/06/2018 3:31:50 PM Referred By: Confirmed By:DEEPAK MORRISON MD
--- NOTE | 2018-06-06 16:08 | PN ---
Teaching Attending Note Name of Resident: Gerard Covington ATTENDING PHYSICIAN STATEMENT I saw and evaluated the patient. I reviewed the resident's note and discussed the case with the resident. I agree with the resident's findings and plan as documented. SUBJECTIVE: OBJECTIVE: Vital Signs Temperature 97.3 F L 06/06/18 12:33 Pulse Rate 86 06/06/18 12:33 Respiratory Rate 18 06/06/18 12:33 Blood Pressure 145/85 06/06/18 12:33 O2 Sat by Pulse Oximetry (%) 94 L 06/06/18 12:33 CBCD WBC 10.4 K/mm3 (4.0-10.0) H 06/06/18 12:37 RBC 4.60 M/mm3 (3.60-5.2) 06/06/18 12:37 Hgb 13.9 GM/dL (10.7-15.3) 06/06/18 12:37 Hct 41.0 % (32.4-45.2) D 06/06/18 12:37 MCV 89.1 fl (80-96) 06/06/18 12:37 MCHC 33.9 g/dl (32.0-36.0) 06/06/18 12:37 RDW 14.2 % (11.6-15.6) 06/06/18 12:37 Plt Count 268 K/MM3 (134-434) 06/06/18 12:37 MPV 8.0 fl (7.5-11.1) 06/06/18 12:37 CMP Sodium 140 mmol/L (136-145) 06/06/18 12:37 Potassium 4.0 mmol/L (3.5-5.1) 06/06/18 12:37 Chloride 104 mmol/L (98-107) 06/06/18 12:37 Carbon Dioxide 27 mmol/L (21-32) 06/06/18 12:37 Anion Gap 9 MMOL/L (8-16) 06/06/18 12:37 BUN 18 mg/dL (7-18) 06/06/18 12:37 Creatinine 0.9 mg/dL (0.55-1.3) 06/06/18 12:37 Creat Clearance w eGFR 59.09 (>60) 06/06/18 12:37 Random Glucose 95 mg/dL (74-106) 06/06/18 12:37 Calcium 9.1 mg/dL (8.5-10.1) 06/06/18 12:37 Total Bilirubin 0.3 mg/dL (0.2-1) 06/06/18 12:37 AST 34 U/L (15-37) 06/06/18 12:37 ALT 42 U/L (13-61) 06/06/18 12:37 Alkaline Phosphatase 96 U/L (45-117) 06/06/18 12:37 Total Protein 7.1 g/dl (6.4-8.2) 06/06/18 12:37 Albumin 3.4 g/dl (3.4-5.0) 06/06/18 12:37 CARDIAC ENZYMES Creatine Kinase 90 U/L (26-192) 06/06/18 12:37 Troponin I < 0.02 ng/ml (0.00-0.05) 06/06/18 12:37 Home Medications Medication Instructions Recorded Escitalopram Oxalate [Lexapro -] 20 mg PO DAILY 10/25/13 Simvastatin [Zocor -] 40 mg PO HS 10/25/13 Sennosides [Senna -] 1 tab PO HS 10/09/14 Acetaminophen 1,000 mg PO ASDIR PRN 05/11/17 Ergocalciferol [Vitamin D2] 50,000 unit PO MONTHLY 05/11/17 Lisinopril [Prinivil] 10 mg PO DAILY tablet 05/14/17 Aspirin [ASA -] 81 mg PO DAILY 06/06/18 Polyvinyl Alcohol [Artificial 1 drop OD BID 06/06/18 Tears] ASSESSMENT AND PLAN:
--- NOTE | 2018-06-06 16:12 | HP ---
CHIEF COMPLAINT: s/p fall HISTORY OF PRESENT ILLNESS: 87 year old female hx of HTN, HLD, CVA, PVD, dementia, frequent falls and syncopal episodes presents to the hospital s/p fall. Patient reports feeling dizzy and lightheaded prior to the fall but denies chest pain, palpitations, feeling short of breath or anxiety. Reports that she lost consciousness prior to the fall and denies any confusion after waking up. States that she called for help immediately after she fell and was brought to the emergency room. Reports pain in her L hand, left leg as well as top of her head. From ED report , patient not supposed to be ambulating by herself at home, which is what she was doing prior to the event. Notably, patient was here in the hospital 1 month ago s/p fall and had fall workup done. Denies any other complaints. ER course was notable for: (1) head/facial bones CT negative (2) L wrist XR + for fracture according to ED, s/p reduction by ED staff (3) laceration sutured by ED Recent Travel: denies PAST MEDICAL HISTORY: as stated above PAST SURGICAL HISTORY: as stated above Social History: Smoking: denies Alcohol: denies Drugs: denies Allergies No Known Drug Allergies Allergy (Verified 05/11/17 10:19) HOME MEDICATIONS: Home Medications Medication Instructions Recorded Escitalopram Oxalate [Lexapro -] 20 mg PO DAILY 10/25/13 Simvastatin [Zocor -] 40 mg PO HS 10/25/13 Sennosides [Senna -] 1 tab PO HS 10/09/14 Acetaminophen 1,000 mg PO ASDIR PRN 05/11/17 Ergocalciferol [Vitamin D2] 50,000 unit PO MONTHLY 05/11/17 Lisinopril [Prinivil] 10 mg PO DAILY tablet 05/14/17 Aspirin [ASA -] 81 mg PO DAILY 06/06/18 Polyvinyl Alcohol [Artificial 1 drop OD BID 06/06/18 Tears] REVIEW OF SYSTEMS CONSTITUTIONAL: Absent: fever, chills, diaphoresis, generalized weakness, malaise, loss of appetite, weight change HEENT: Absent: rhinorrhea, nasal congestion, throat pain, throat swelling, difficulty swallowing, mouth swelling, ear pain, eye pain, visual changes CARDIOVASCULAR: Absent: chest pain, syncope, palpitations, irregular heart rate, lightheadedness , peripheral edema RESPIRATORY: Absent: cough, shortness of breath, dyspnea with exertion, orthopnea, wheezing, stridor, hemoptysis GASTROINTESTINAL: Absent: abdominal pain, abdominal distension, nausea, vomiting, diarrhea, constipation, melena, hematochezia GENITOURINARY: Absent: dysuria, frequency, urgency, hesitancy, hematuria, flank pain, genital pain MUSCULOSKELETAL: Absent: myalgia, arthralgia, joint swelling, back pain, neck pain SKIN: Absent: rash, itching, pallor HEMATOLOGIC/IMMUNOLOGIC: Absent: easy bleeding, easy bruising, lymphadenopathy, frequent infections ENDOCRINE: Absent: unexplained weight gain, unexplained weight loss, heat intolerance, cold intolerance NEUROLOGIC: Absent: headache, focal weakness or paresthesias, dizziness, unsteady gait, seizure, mental status changes, bladder or bowel incontinence PSYCHIATRIC: Absent: anxiety, depression, suicidal or homicidal ideation, hallucinations. PHYSICAL EXAMINATION Vital Signs - 24 hr 06/06/18 12:33 Temperature 97.3 F L Pulse Rate 86 Respiratory 18 Rate Blood Pressure 145/85 O2 Sat by Pulse 94 L Oximetry (%) GENERAL: A&Ox3, no acute distress, laceration noted on top of forehead EYES: PERRLA, EOMI, ecchymotic area noted around L eye ENT: Moist mucus membranes NECK: No JVD LUNGS: CTA, no wheezes HEART: RRR, no murmurs ABDOMEN: Soft, nontender, BS present MUSCULOSKELETAL: No CVA Tenderness EXTREMITIES: 2+ pulses, no edema. Laceration on 2/3rd digit non-bleeding, L arm in sling, L leg in sling NEUROLOGICAL: Cranial nerves II-XII intact. Motor strength 5/5 b/l, no sensory deficits Laboratory Results - last 24 hr 06/06/18 06/06/18 06/06/18 12:37 12:37 12:37 WBC 10.4 H RBC 4.60 Hgb 13.9 Hct 41.0 D MCV 89.1 MCH 30.2 D MCHC 33.9 RDW 14.2 Plt Count 268 MPV 8.0 Absolute Neuts (auto) 8.4 H Neutrophils % 80.7 Lymphocytes % 7.5 L D Monocytes % 10.2 Eosinophils % 1.1 D Basophils % 0.5 Nucleated RBC % 0 PT with INR 11.80 INR 1.00 PTT (Actin FS) 29.1 Sodium 140 Potassium 4.0 Chloride 104 Carbon Dioxide 27 Anion Gap 9 BUN 18 Creatinine 0.9 Creat Clearance w eGFR 59.09 Random Glucose 95 Calcium 9.1 Total Bilirubin 0.3 AST 34 ALT 42 Alkaline Phosphatase 96 Creatine Kinase 90 Troponin I < 0.02 Total Protein 7.1 Albumin 3.4 Blood Type Antibody Screen 06/06/18 12:37 WBC RBC Hgb Hct MCV MCH MCHC RDW Plt Count MPV Absolute Neuts (auto) Neutrophils % Lymphocytes % Monocytes % Eosinophils % Basophils % Nucleated RBC % PT with INR INR PTT (Actin FS) Sodium Potassium Chloride Carbon Dioxide Anion Gap BUN Creatinine Creat Clearance w eGFR Random Glucose Calcium Total Bilirubin AST ALT Alkaline Phosphatase Creatine Kinase Troponin I Total Protein Albumin Blood Type O POSITIVE Antibody Screen Negative ASSESSMENT/PLAN: 87 year old female hx of HTN, HLD, CVA, PVD, dementia, frequent falls and syncopal episodes presents to the hospital s/p fall #Fall: patient likely had mechanical fall vs syncopal nature -head CT negative -s/p L wrist fracture reduction by ED staff -consult ortho for fracture evaluation -had syncope workup done 1 month ago, echo showed EF 70%, normal atria and ventricle size, mild to moderate aortic sclerosis, RV systolic pressure 28mmhg -no need to repeat echo -place on cardiac monitoring overnight -gently hydrate with 83cc/hr fluids -orthostatic vitals -carotid dopplers -CPK -UA -cards consultation #Hypertension -continue lisinopril 10 #Hyperlipidemia -continue statin #FEN -NS @ 83cc/hr -lytes normal -sodium controlled diet #Prophylaxis -heparin prophylaxis #Disposition -admit tele obs, anticipate DC in 1-2 dyas Visit type - Emergency Visit Emergency Visit: Yes Care time: The patient presented to the Emergency Department on the above date and was hospitalized for further evaluation of their emergent condition. - New Patient This patient is new to me today: Yes Date on this admission: 06/06/18 - Critical Care Critical Care patient: No
[2018-06-06] MEDS: SODIUM CHLORIDE 1,000 ML IV SCH (17:51)
[2018-06-06 18:14] LABS: URINE APPEARANCE SLCLOUDY; URINE BILIRUBIN NEGATIVE (<2.0 mg/dL); URINE COLOR LTYELLOW; URINE GLUCOSE (UA) NEGATIVE (NEGATIVE); URINE KETONE NEGATIVE (NEGATIVE); URINE LEUK ESTERASE TRACE (NEGATIVE); URINE NITRITE NEGATIVE (NEGATIVE); URINE PROTEIN NEGATIVE (NEGATIVE); URINE UROBILINOGEN NEGATIVE mg/dL (0.2-1.0)
[2018-06-06 18:20] LABS: EPI CELLS FEW /HPF (FEW); URINE BACTERIA RARE /hpf (NONE SEEN)
--- NOTE | 2018-06-06 18:50 | PN ---
Teaching Attending Note Name of Resident: Gerard Covington ATTENDING PHYSICIAN STATEMENT I saw and evaluated the patient. I reviewed the resident's note and discussed the case with the resident. I agree with the resident's findings and plan as documented. SUBJECTIVE: Complains of L arm pain, LLE pain, and diffuse abdominal pain, worse on RLQ. No further lightheadedness, dizziness. No headache/visual disturbance. OBJECTIVE: Afebrile, Hemodynamically Stable. Last Vital Signs Temp Pulse Resp BP Pulse Ox 97.3 F L 83 18 152/76 97 06/06/18 12:33 06/06/18 17:53 06/06/18 17:53 06/06/18 17:53 06/06/18 17:53 HEENT - Extensive bruising Left forehead with laceration s/p suture, Left periorbital ecchymoses. Neuro - AAO x 3. EOMI. Tone/Power normal. AR[place]IO. Heart - S1, S2, soft SM Abdomen - Soft, generalized tenderness, worse in RLQ Extremities - LUE dressed s/p reduction and suture. LLE dressed. Laboratory Results - last 24 hr 06/06/18 06/06/18 06/06/18 12:37 12:37 12:37 WBC 10.4 H RBC 4.60 Hgb 13.9 Hct 41.0 D MCV 89.1 MCH 30.2 D MCHC 33.9 RDW 14.2 Plt Count 268 MPV 8.0 Absolute Neuts (auto) 8.4 H Neutrophils % 80.7 Lymphocytes % 7.5 L D Monocytes % 10.2 Eosinophils % 1.1 D Basophils % 0.5 Nucleated RBC % 0 PT with INR 11.80 INR 1.00 PTT (Actin FS) 29.1 Sodium 140 Potassium 4.0 Chloride 104 Carbon Dioxide 27 Anion Gap 9 BUN 18 Creatinine 0.9 Creat Clearance w eGFR 59.09 Random Glucose 95 Calcium 9.1 Total Bilirubin 0.3 AST 34 ALT 42 Alkaline Phosphatase 96 Creatine Kinase 90 Troponin I < 0.02 Total Protein 7.1 Albumin 3.4 Urine Color Urine Appearance Urine pH Ur Specific [place] Urine Protein Urine Glucose (UA) Urine Ketones Urine Blood Urine Nitrite Urine Bilirubin Urine Urobilinogen Ur Leukocyte Esterase Urine WBC (Auto) Urine RBC (Auto) Ur Epithelial Cells Urine Bacteria Blood Type Antibody Screen 06/06/18 06/06/18 12:37 17:55 WBC RBC Hgb Hct MCV MCH MCHC RDW Plt Count MPV Absolute Neuts (auto) Neutrophils % Lymphocytes % Monocytes % Eosinophils % Basophils % Nucleated RBC % PT with INR INR PTT (Actin FS) Sodium Potassium Chloride Carbon Dioxide Anion Gap BUN Creatinine Creat Clearance w eGFR Random Glucose Calcium Total Bilirubin AST ALT Alkaline Phosphatase Creatine Kinase Troponin I Total Protein Albumin Urine Color Ltyellow Urine Appearance Slcloudy Urine pH 6.0 Ur Specific [place] 1.011 Urine Protein Negative Urine Glucose (UA) Negative Urine Ketones Negative Urine Blood Negative Urine Nitrite Negative Urine Bilirubin Negative Urine Urobilinogen Negative Ur Leukocyte Esterase Trace Urine WBC (Auto) 9 Urine RBC (Auto) 2 Ur Epithelial Cells Few Urine Bacteria Rare Blood Type O POSITIVE Antibody Screen Negative Current Medications Generic Name Dose Route Start Last Admin Trade Name Freq PRN Reason Stop Dose Admin Acetaminophen 650 mg 06/06/18 16:20 Tylenol - PO Q4H PRN PAIN LEVEL 1-5 Artificial Tears 1 drop 06/06/18 22:00 Artificial Tears OD BID [facility] Aspirin 81 mg 06/07/18 10:00 Asa - PO DAILY [facility] Atorvastatin Calcium 20 mg 06/06/18 22:00 Lipitor - PO HS [facility] Ergocalciferol 50,000 unit 06/13/18 10:00 Drisdol - PO Q30D@1000 [facility] Escitalopram Oxalate 20 mg 06/07/18 10:00 Lexapro - PO DAILY [facility] Sodium Chloride 1,000 mls @ 83 mls/hr 06/06/18 16:30 06/06/18 17:51 Normal Saline - IV 06/08/18 04:33 83 mls/hr ASDIR [facility] Administration Lisinopril 10 mg 06/07/18 10:00 Prinivil PO DAILY [facility] Home Medications Medication Instructions Recorded Escitalopram Oxalate [Lexapro -] 20 mg PO DAILY 10/25/13 Simvastatin [Zocor -] 40 mg PO HS 10/25/13 Sennosides [Senna -] 1 tab PO HS 10/09/14 Acetaminophen 1,000 mg PO ASDIR PRN 05/11/17 Ergocalciferol [Vitamin D2] 50,000 unit PO MONTHLY 05/11/17 Lisinopril [Prinivil] 10 mg PO DAILY tablet 05/14/17 Aspirin [ASA -] 81 mg PO DAILY 06/06/18 Polyvinyl Alcohol [Artificial 1 drop OD BID 06/06/18 Tears] ASSESSMENT AND PLAN: 87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 She refers standing in the bathroom, feeling dizzy/ lightheaded with her next memory of waking on the floor. She denies any preceding CP/palpitations. She does report abdominal pain on a background of 1- 2 day history of loose stool. No fever/chills. 1. Syncope, etiology unclear, likely secondary to dehydration due to diarrhea. CT Head - no acute findings. Recent Echo - normal EF with mild to mod . ECG - SR, low voltage QRS - no change from prior ECG 05/22 TnI and CPK normal. UCx pending. Telemonitoring. Orthostatic vitals, Carotid Duplex requested. Gentle hydration. PT eval. B12/TSH levels sent. 2. Non-specific Abdominal Discomfort/tenderness with reported Diarrhea CT A/P requested. Stool Studies including Cx and Cdiff requested. Afebrile, hemodynamically stable. Trial of diet and gentle hydration. 3. Musculoskeletal and soft tissue Injury sec to collapse/trauma, including: Left Radius fracture s/p reduction and fixation in ED Laceration to Left forehead and L hand - sutured in ED. - CT Facial Bones: no fracture - CT C Spine: Severe DJD Awaiting MS Xray reports including Xray Pelvis and XR LLE. Orthopedic consult requested. PT eval. 4. HTN - Normally on Lisinopril - continue. 5, HLD - normally on Zocor - continue. 6. Hx of prior CVA with mild Dementia - patient unable to communicate if any residual deficit but usually mobilizes in a wheelchair, using a walker for shorter distances. No focal deficit on physical exam (which was limited by acute musculoskeletal injuries). Continue Aspirin, Statin, Lexapro. DVT Px - held for now sec to trauma with extensive ecchymoses.
[2018-06-06] MEDS ORDERED: SENNOSIDES 8.6MG TABLET (FP) PO SCH (22:00)
[2018-06-06] MEDS ORDERED: POLYVINYL ALCOHOL OD SCH (22:00)
[2018-06-06] MEDS ORDERED: PATIENT'S OWN MEDICATION (NON-FORMULARY) (Simvastatin 40 MG) PO SCH (22:00)
[2018-06-06] MEDS ORDERED: HEPARIN NA (PORCINE) 5,000 UNITS/ML 1ML VIAL SQ SCH (22:00)
[2018-06-06] MEDS: ACETAMINOPHEN 325 MG TABLET (FP) PO PRN (23:09)
[2018-06-06] MEDS: ATORVASTATIN CA 20 MG TABLET (FP) PO SCH (23:11)
[2018-06-06] MEDS: ARTIFICIAL TEARS (POLYVINYL ALCOHOL) OPTH DROPS OD SCH (23:11)
[2018-06-07 03:13] VITALS: BMI 28.5
[2018-06-07 06:35] LABS: HEMATOCRIT 36.2 % (32.4-45.2); HEMOGLOBIN 12.2 GM/dL (10.7-15.3); MCH 29.8 pg (25.7-33.7); MCHC 33.6 g/dl (32.0-36.0); MEAN CELL VOLUME 88.6 fl (80-96); MEAN PLT VOLUME 7.9 fl (7.5-11.1); PLATELET COUNT 256 K/MM3 (134-434); RBC 4.09 M/mm3 (3.60-5.2); RDW 13.8 % (11.6-15.6)
[2018-06-07 07:19] LABS: ANION GAP 8 MMOL/L (8-16); BLOOD UREA NITROGEN 12 mg/dL (7-18); CALCIUM 8.7 mg/dL (8.5-10.1); CHLORIDE 108 mmol/L (98-107); CO2 25 mmol/L (21-32); CREATININE 0.7 mg/dL (0.55-1.3); GLUCOSE,RANDOM 84 mg/dL (74-106); MAGNESIUM 2.1 mg/dL (1.8-2.4); POTASSIUM 3.8 mmol/L (3.5-5.1); SODIUM 141 mmol/L (136-145)
--- NOTE | 2018-06-07 08:51 | PN ---
Physical Exam: SUBJECTIVE: Patient seen and examined at bedside this morning. Patient is pleasantly demented, in no acute distress. She endorses left arm pain, left lower extremity pain, and diminished appetite without abdominal pain, nausea, vomiting, diarrhea. Overnight she was febrile to Tmax 100.7F. She does not endorse any bowel movements overnight. OBJECTIVE: Vital Signs Period Temp Pulse Resp BP Sys/Pagan Pulse Ox Last 24 Hr 97.3 F-100.7 F 83-90 18-20 145-165/76-87 94-97 GENERAL: The patient is awake, alert, oriented to person, and place in no acute distress. HEAD: Normocephalic. Laceration 5cm along left forehead, sutured in ED. EYES: Bilateral periorbital echymosis. Extraocular movements intact. PERRL, sclera anicteric, conjunctiva clear. ENT: Oropharynx clear without exudates, dry mucous membranes. NECK: Supple without lymphadenopathy, or JVD LUNGS: Breath sounds equal, clear to auscultation bilaterally, no wheezes, no crackles, no accessory muscle use. HEART: Regular rate and rhythm, S1, S2 without murmur, rub or gallop. ABDOMEN: Soft, nontender, nondistended, normoactive bowel sounds, no guarding, no rebound, no hepatosplenomegaly, no masses. EXTREMITIES: 2+ pulses. Left upper extremity, and left lower extremity splinted , wrapped with bandage. NEUROLOGICAL: Cranial nerves II through XII grossly intact. Normal speech. PSYCH: Normal mood, normal affect. SKIN: Warm, dry Laboratory Results - last 24 hr 06/06/18 06/06/18 06/06/18 12:37 12:37 12:37 WBC 10.4 H RBC 4.60 Hgb 13.9 Hct 41.0 D MCV 89.1 MCH 30.2 D MCHC 33.9 RDW 14.2 Plt Count 268 MPV 8.0 Absolute Neuts (auto) 8.4 H Neutrophils % 80.7 Lymphocytes % 7.5 L D Monocytes % 10.2 Eosinophils % 1.1 D Basophils % 0.5 Nucleated RBC % 0 PT with INR 11.80 INR 1.00 PTT (Actin FS) 29.1 Sodium 140 Potassium 4.0 Chloride 104 Carbon Dioxide 27 Anion Gap 9 BUN 18 Creatinine 0.9 Creat Clearance w eGFR 59.09 Random Glucose 95 Calcium 9.1 Magnesium Total Bilirubin 0.3 AST 34 ALT 42 Alkaline Phosphatase 96 Creatine Kinase 90 Troponin I < 0.02 Total Protein 7.1 Albumin 3.4 Urine Color Urine Appearance Urine pH Ur Specific [place] Urine Protein Urine Glucose (UA) Urine Ketones Urine Blood Urine Nitrite Urine Bilirubin Urine Urobilinogen Ur Leukocyte Esterase Urine WBC (Auto) Urine RBC (Auto) Ur Epithelial Cells Urine Bacteria Blood Type Antibody Screen 06/06/18 06/06/18 06/07/18 12:37 17:55 05:30 WBC 7.0 RBC 4.09 Hgb 12.2 Hct 36.2 MCV 88.6 MCH 29.8 MCHC 33.6 RDW 13.8 Plt Count 256 MPV 7.9 Absolute Neuts (auto) Neutrophils % Lymphocytes % Monocytes % Eosinophils % Basophils % Nucleated RBC % PT with INR INR PTT (Actin FS) Sodium Potassium Chloride Carbon Dioxide Anion Gap BUN Creatinine Creat Clearance w eGFR Random Glucose Calcium Magnesium Total Bilirubin AST ALT Alkaline Phosphatase Creatine Kinase Troponin I Total Protein Albumin Urine Color Ltyellow Urine Appearance Slcloudy Urine pH 6.0 Ur Specific [place] 1.011 Urine Protein Negative Urine Glucose (UA) Negative Urine Ketones Negative Urine Blood Negative Urine Nitrite Negative Urine Bilirubin Negative Urine Urobilinogen Negative Ur Leukocyte Esterase Trace Urine WBC (Auto) 9 Urine RBC (Auto) 2 Ur Epithelial Cells Few Urine Bacteria Rare Blood Type O POSITIVE Antibody Screen Negative 06/07/18 05:30 WBC RBC Hgb Hct MCV MCH MCHC RDW Plt Count MPV Absolute Neuts (auto) Neutrophils % Lymphocytes % Monocytes % Eosinophils % Basophils % Nucleated RBC % PT with INR INR PTT (Actin FS) Sodium 141 Potassium 3.8 Chloride 108 H Carbon Dioxide 25 Anion Gap 8 BUN 12 Creatinine 0.7 Creat Clearance w eGFR > 60 Random Glucose 84 Calcium 8.7 Magnesium 2.1 Total Bilirubin AST ALT Alkaline Phosphatase Creatine Kinase Troponin I Total Protein Albumin Urine Color Urine Appearance Urine pH Ur Specific [place] Urine Protein Urine Glucose (UA) Urine Ketones Urine Blood Urine Nitrite Urine Bilirubin Urine Urobilinogen Ur Leukocyte Esterase Urine WBC (Auto) Urine RBC (Auto) Ur Epithelial Cells Urine Bacteria Blood Type Antibody Screen Active Medications Generic Name Dose Route Start Last Admin Trade Name Freq PRN Reason Stop Dose Admin Acetaminophen 650 mg 06/06/18 16:20 06/06/18 23:09 Tylenol - PO 650 mg Q4H PRN Administration PAIN LEVEL 1-5 Artificial Tears 1 drop 06/06/18 22:00 06/06/18 23:11 Artificial Tears OD 1 drop BID [facility] Administration Aspirin 81 mg 06/07/18 10:00 Asa - PO DAILY [facility] Atorvastatin Calcium 20 mg 06/06/18 22:00 06/06/18 23:11 Lipitor - PO 20 mg HS [facility] Administration Ergocalciferol 50,000 unit 06/13/18 10:00 Drisdol - PO Q30D@1000 [facility] Escitalopram Oxalate 20 mg 06/07/18 10:00 Lexapro - PO DAILY [facility] Sodium Chloride 1,000 mls @ 83 mls/hr 06/06/18 16:30 06/06/18 17:51 Normal Saline - IV 06/08/18 04:33 83 mls/hr ASDIR [facility] Administration Lisinopril 10 mg 06/07/18 10:00 Prinivil PO DAILY [facility] IMAGING: -Left wrist xray shows distal radial fracture, volar angulation. Ulnar styloid fracture. -Left foot ankle xray shows degenerative changes. No acute fracture or subluxation -Left hip xray shows right hip replacement, with no acute pathology. -CT head shows no acute intracranial pathology -CT facial bones shows no fractures -CT cervical spine shows no fracture. Severe degenerative arthritis noted. -Carotid duplex shows no hemodynamically significant stenosis ASSESSMENT/PLAN: Patient is an 87 year old female with history of dementia, prior CVA, falls, syncopal episodes, hypertension, hyperlipidemia presents after a fall. Syncopal episode -EKG shows: normal sinus rhythm at 82 BPM. No significant change compared to EKG 05/2017 -Follow repeat cardiac ECHO -Neurology consult (Dr. Giraldo) appreciated. Follow Lumbar spine CT, EEG -Cardiology consult (Dr. Ramos) appreciated. -Orthopedic surgery consult (Dr. Jeffers) -CPK: 90, TSH: 0.61, B12: 326 -UA not impressive for UTI. Follow urine culture. Hypertenison -Lisinopril 10mg PO daily Hyperlipidemia -Lipitor 20mg PO HS Dementia, depression -Escitalopram 20mg PO daily Coronary artery disease -Aspirin 81mg PO daily Nonspecific abdominal pain, reported diarrhea -Denies any diarrhea overnight. No bowel movements reported by nursing staff -CT abdomen, pelvis shows bibasliar bronchiectatic changes with small effusions. Numerous 2-3mm pulmonary nodules noted. Multiple nonspecific liver hypodensities, fatty liver. Cystic adnexal hypodense lesion within uterus. -Follow stool for C. difficile -Stool culture FEN -IV normal saline at 83mL/ hour -Follow CMP -Renal diet, supplement with Ensure. Prophylaxis -Holding chemical anticoagulation due to significant ecchymosis. Will consider reinstating tomorrow. Disposition -Continue care in medical surgical floor. Visit type - Emergency Visit Emergency Visit: Yes ED Registration Date: 06/07/18 Care time: The patient presented to the Emergency Department on the above date and was hospitalized for further evaluation of their emergent condition. - New Patient This patient is new to me today: Yes Date on this admission: 06/07/18 - Critical Care Critical Care patient: No - Discharge Referral Referred to [facility] Med P.C.: No
--- NOTE | 2018-06-07 09:32 | CON.NEURO ---
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 Cardio/Vascular: Yes: HTN, Hyperlipdemia, MS (possible stents, hx unclear) Psych: Yes: Depression - Past Surgical History Past Surgical History: Yes: Stent (unknown date) - Alcohol/Substance Use Hx Alcohol Use: No - Smoking History Smoking history: Never smoked Have you smoked in the past 12 months: No - Social History ADL: Support Services Home Medications - Allergies Allergies/Adverse Reactions: Allergies Allergy/AdvReac Type Severity Reaction Status Date / Time No Known Drug Allergies Allergy Verified 05/11/17 10:19 - Home Medications Home Medications: Ambulatory Orders Escitalopram Oxalate [Lexapro -] 20 mg PO DAILY 10/25/13 Simvastatin [Zocor -] 40 mg PO HS 10/25/13 Sennosides [Senna -] 1 tab PO HS 10/09/14 Acetaminophen 1,000 mg PO ASDIR PRN 05/11/17 Ergocalciferol [Vitamin D2] 50,000 unit PO MONTHLY 05/11/17 Lisinopril [Prinivil] 10 mg PO DAILY tablet 05/14/17 Aspirin [ASA -] 81 mg PO DAILY 06/06/18 Polyvinyl Alcohol [Artificial Tears] 1 drop OD BID 06/06/18 Physical Exam-Neuro Vital Signs: Vital Signs Temperature 98.7 F 06/07/18 05:00 Pulse Rate 90 06/07/18 05:00 Respiratory Rate 20 06/07/18 05:00 Blood Pressure 165/80 06/07/18 05:00 O2 Sat by Pulse Oximetry (%) 97 06/06/18 19:30 Labs: CBC, BMP 06/07/18 05:30 06/07/18 05:30 INR, PTT INR 1.00 (0.83-1.09) 06/06/18 12:37
--- NOTE | 2018-06-07 09:47 | EKG ---
Test Reason : Blood Pressure : / mmHG Vent. Rate : 077 BPM Atrial Rate : 077 BPM P-R Int : 182 ms QRS Dur : 090 ms QT Int : 402 ms P-R-T Axes : 057 009 052 degrees QTc Int : 454 ms NORMAL SINUS RHYTHM LOW VOLTAGE QRS NONSPECIFIC T WAVE ABNORMALITY ABNORMAL ECG WHEN COMPARED WITH ECG OF 06-JUN-2018 12:23, NO SIGNIFICANT CHANGE WAS FOUND Confirmed by RAYSA PASTRANA, HENRY ([id number]) on 06/07/2018 9:47:04 AM Referred By: Confirmed By:HENRY TABARES MD
[2018-06-07] MEDS: ASPIRIN 81 MG CHEWABLE TABLETS PO SCH (09:57)
[2018-06-07] MEDS: LISINOPRIL 10 MG TABLET (FP) PO SCH (09:57)
[2018-06-07] MEDS: ESCITALOPRAM OXALATE 20 MG TABLET (FP) PO SCH (09:57)
[2018-06-07] MEDS: ARTIFICIAL TEARS (POLYVINYL ALCOHOL) OPTH DROPS OD SCH ×2 (09:59→21:31)
--- NOTE | 2018-06-07 10:05 | CON.CARD ---
Consult Consult Specialty:: Cardiology Referred by:: Hospitalist Reason for Consultation:: Cardiac evaluation - History of Present Illness Chief Complaint: Post mechanical fall History of Present Illness: Patient is an 87 year old female with underlying history of HTN, hypercholesterolemia, cerebrovascular disease, ?syncope, organic brain syndrome/ dementia who presents after a fall and sent in from [facility]. She is not able to provide any history. She was found face down in her room. She did not report any dizziness or headache. Currently, she denies chest pain, SOB or palpitations. She has ecchymosis and bruise on both her orbital region. She does not have fever or chills. She denies nausea, vomiting, diarrhea or abdominal pain. She denies headache. She also has dressing applied to left forearm down to her wrist and her left leg below the ankle. - History Source History Provided By: Medical Record Limitations to Obtaining History: Dementia - Past Medical History [employer]: Yes: CVA, Dementia Cardio/Vascular: Yes: HTN, Hyperlipdemia, [place] (possible stents, history unclear) Psych: Yes: Depression - Past Surgical History Past Surgical History: Yes: Stent (unknown date) - Alcohol/Substance Use Hx Alcohol Use: No - Smoking History Smoking history: Never smoked Have you smoked in the past 12 months: No - Social History ADL: Support Services Home Medications - Allergies Allergies/Adverse Reactions: Allergies Allergy/AdvReac Type Severity Reaction Status Date / Time No Known Drug Allergies Allergy Verified 05/11/17 10:19 - Home Medications Home Medications: Ambulatory Orders Escitalopram Oxalate [Lexapro -] 20 mg PO DAILY 10/25/13 Simvastatin [Zocor -] 40 mg PO HS 10/25/13 Sennosides [Senna -] 1 tab PO HS 10/09/14 Acetaminophen 1,000 mg PO ASDIR PRN 05/11/17 Ergocalciferol [Vitamin D2] 50,000 unit PO MONTHLY 05/11/17 Lisinopril [Prinivil] 10 mg PO DAILY tablet 05/14/17 Aspirin [ASA -] 81 mg PO DAILY 06/06/18 Polyvinyl Alcohol [Artificial Tears] 1 drop OD BID 06/06/18 Family Disease History - Family Disease History Family History: Unable to Obtain Review of Systems Unable to obtain ROS, reason: Unable to obtain Vital Signs: Vital Signs Temperature 98.7 F 06/07/18 05:00 Pulse Rate 90 06/07/18 05:00 Respiratory Rate 20 06/07/18 05:00 Blood Pressure 165/80 06/07/18 05:00 O2 Sat by Pulse Oximetry (%) 97 06/06/18 19:30 Constitutional: Yes: Other (Ecchymosis both orbital region) HENT: Yes: Atraumatic Neck: Yes: Supple Respiratory: Yes: Diminished Gastrointestinal: Yes: Normal Bowel Sounds, Soft. No: Tenderness Cardiovascular: Yes: Regular Rate and Rhythm JVD: No PMI: Non-Displaced Heart Sounds: Yes: S1, S2 Murmur: Yes: Systolic Murmur, Grade 1 Edema: No - Other Data Labs, Other Data: CBC, BMP 06/07/18 05:30 06/07/18 05:30 INR, PTT INR 1.00 (0.83-1.09) 06/06/18 12:37 Troponin, BNP 06/06/18 12:37 Troponin I < 0.02 Sinus rhythm with nonspecific T abnormality Echo: Pending Imaging - Results Chest X-ray: Report Reviewed (atelactasis and pleural changes) X-ray: Report Reviewed (Left ulnar styloid fracture) Cat Scan: Report Reviewed (Head CT unremarkable Abdominal CT: Unremarkable except pulmonary nodule) Ultrasound: Report Reviewed (Carotid US mild atherosclerotic plaque bilaterally) EKG: Report Reviewed Problem List - Problems (1) Dementia Code(s): F03.90 - UNSPECIFIED DEMENTIA WITHOUT BEHAVIORAL DISTURBANCE Qualifiers: Dementia type: unspecified type Dementia behavioral disturbance: without behavioral disturbance Qualified Code(s): F03.90 - Unspecified dementia without behavioral disturbance (2) Distal radius fracture, left Code(s): S52.502A - UNSP FRACTURE OF THE LOWER END OF LEFT RADIUS, INIT Qualifiers: Encounter type: initial encounter Fracture type: closed Fracture morphology: unspecified fracture morphology Qualified Code(s): S52.502A - Unspecified fracture of the lower end of left radius, initial encounter for closed fracture (3) Facial laceration Code(s): S01.81XA - LACERATION W/O FOREIGN BODY OF OTH PART OF HEAD, INIT ENCNTR Qualifiers: Encounter type: initial encounter Qualified Code(s): S01.81XA - Laceration without foreign body of other part of head, initial encounter (4) CAD (coronary artery disease) Code(s): I25.10 - ATHSCL HEART DISEASE OF [place] CORONARY ARTERY W/O ANG PCTRS Qualifiers: Coronary Disease-Associated Artery/Lesion type: [place] artery [facility] vs. transplanted heart: [place] heart Associated angina: without angina Qualified Code(s): I25.10 - Atherosclerotic heart disease of [place] coronary artery without angina pectoris (5) CVA (cerebral infarction) Code(s): I63.9 - CEREBRAL INFARCTION, UNSPECIFIED Qualifiers: Cerebral infarction mechanism: unspecified mechanism Qualified Code(s): I63.9 - Cerebral infarction, unspecified (6) HTN (hypertension) Code(s): I10 - ESSENTIAL (PRIMARY) HYPERTENSION Qualifiers: Hypertension type: essential hypertension Qualified Code(s): I10 - Essential (primary) hypertension (7) History of percutaneous coronary intervention Code(s): Z98.890 - OTHER SPECIFIED POSTPROCEDURAL STATES (8) Hyperlipemia Code(s): E78.5 - HYPERLIPIDEMIA, UNSPECIFIED Qualifiers: Hyperlipidemia type: pure hypercholesterolemia Qualified Code(s): E78.00 - Pure hypercholesterolemia, unspecified; E78.0 - Pure hypercholesterolemia Assessment/Plan 1. ?Syncope vs. mechanical fall resulting in external injury with left ulnar styloid fracture and orbital ecchymosis 2. HTN 3. Hypercholesterolemia 4. Organic brain syndrome/dementia PLAN: 1. Monitor on telemetry 2. Continue Lisinopril as tolerated 3. ASA 4. Lipitor 5. Echocardiography to assess LV/RV and valvular function Further plans are to follow Lopez Guerra MD
--- NOTE | 2018-06-07 11:42 | CONSULT ---
Admitting History and Physical - Primary Care Physician PCP: Beny Felder - Admission History of Present Illness: 87 year old female hx of HTN, HLD, CVA, PVD, dementia, frequent falls and syncopal episodes presents to the hospital s/p fall Chest X-ray: Report reviewed (atelactasis and pleural changes) X-ray: Report Reviewed (Left ulnar styloid fracture) Cat Scan: Report Reviewed (Head CT unremarkable Abdominal CT: Unremarkable except pulmonary nodule) Ultrasound: Report Reviewed (Carotid US mild atherosclerotic plaque bilaterally) Pt with purple area around eyes and on left side of her forehead with swelling. Closed head Injury. Pt with h/o Dementia, was on reg diet/thin liquid at [facility]. Premorbid level of cognitive deficits ? 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: CVA, Dementia Cardiovascular: Yes: HTN, Hyperlipdemia, [place] (possible stents, history unclear) Psych: Yes: Depression - Past Surgical History Past Surgical History: Yes: Stent (unknown date) - Advance Directives Advance Directives: Yes: Health Care Proxy, DNR - Smoking History Smoking history: Never smoked Have you smoked in the past 12 months: No - Alcohol/Substance Use Hx Alcohol Use: No - Social History ADL: Support Services History - Admission Reason For Visit: CLOSED HEAD INJURY,FRACTURE IF DISRAL END OF - Diagnostics X-ray: Report Reviewed - General Mental Status: Awake and Alert, Forgetful, Vague, Intermittently Confused, Flat Affect Attention: Distractible, Mild Impairment Ability to Follow Directions: Fair Head/Neck Control: Fair - Hearing Hearing: Normal Speech Evaluation - Communication Primary Language: URDU Communication: Yes: Simple Responses - Speech Production Intelligibility: Yes: WNL - Speech Characteristics Voice Loudness: Normal Voice Pitch: Yes: Normal Voice Phonatory-based Quality: Yes: Normal Speech Clarity: < 100% Nasal Resonance: Normal Articulation: Yes: Precise - Language/Auditory Comprehension Follows: Yes: 1 Stage Simple Commands Observation: Comprehends Conversational Speech: Yes (simple but distractible), Benefits from Slow Speech: Yes, Benefits from Repetiton: Yes - Language/Verbal Expression Aphasia: Yes: Anomia Able to Respond to Simple Queries: Yes: Mildly Impaired, Moderately Impaired ( Becomes distracyed, forgets the question posed, remembers a prvious question) Able to Communicate Wants and Needs: Yes: Mildly Impaired, Moderately Impaired Functional Communication Status: Yes: Mildly Impaired, Moderately Impaired ( hesitant) - Swallow Evaluation/Bedside Assessment Current Nutritional Intake: Clear Liquids (ct ab done) Oral Secretions: Yes: WFL Dentition: Yes: Adequate Facial Symmetry at Rest: Symmetrical Facial Symmetry on Retraction: Symmetrical Against Resistance Opening: Normal Against Resistance Closing: Normal Pucker Lips: Normal Smile: Normal Lingual Movement: Normal, Symmetric Lingual Speed of Movement: Normal Lingual Movement Strgth Against Opposition: Normal Lingual Movement Characteristics: Normal Laryngeal Elevation: WFL Laryngeal Movement: Able to Palpate Rate of Intake: WFL Bolus Size: WFL Labial Seal: WFL Chewing: WFL Oral Prep Time: WFL A-P Transit: WFL Pocketing: None Timing of Swallow: WFL Coughing/Throat Clear: No Change in Voice: No Recommendations - Speech Evaluation, Impression/Plan Impression: Pt with h/o Dementia, now with Closed Head Injury. Premorbid level of cognitive deficits? Distractible, forgets question posed, soesnt answer needing repetition. Vague. Anomia. No dysarthria. Swallowing intact. Recommended Therapies: Language, Other (cognitive) - Disposition Discharge to: Snf Facility - Dysphagia Impressions/Plan Swallowing Skills: WFL Dysphagia Impressions: Minimal Impairment *Silent aspiration: cannot be R/O at bedside Dysphagia Treatment Plan: Small Bites, Chin Tuck/Down, Safe Rate, 1/2 tsp. at a time, Elevate HOB during feed, Other (May need assistance meal time due to distractibility.) Recommendations: Modified Barium Swallow (if cough, congestion, fever), Other ( monitor nutritional intake) - Recommendations Diet Consistency: Regular Medication Administration: Whole with water Liquids: Thin Liquids Supplement: Ensure (b/n meals)
--- NOTE | 2018-06-07 13:15 | PN ---
Progress Note, Physician History of Present Illness: this is a very pleasant 87-year-old right-handed woman with present medical history significant for Senile dementia Osteoarthritis Hypertension Coronary artery disease Gait dysfunction Presented to the hospital last night with a chief complaint of status post fall. Patient does not recall what happened exactly. Patient denies any chest pain no seizure-like activity no history of recent travel patient with chronic history of difficulty with her walking and balance and equilibrium. No report of any chest pain patient came into the emergency room CAT scan of the face and the head was done. Patient was admitted to telemetry for further treatment and management. Since admission to the floor patient with no seizure- like activity patient denies any symptoms of headache dizziness blurry vision. - Current Medication List Current Medications: Active Medications Acetaminophen (Tylenol -) 650 mg PO Q4H PRN PRN Reason: PAIN LEVEL 1-5 Last Admin: 06/06/18 23:09 Dose: 650 mg Artificial Tears (Artificial Tears) 1 drop OD BID [facility] Last Admin: 06/07/18 09:59 Dose: 1 drop Aspirin (Asa -) 81 mg PO DAILY [facility] Last Admin: 06/07/18 09:57 Dose: 81 mg Atorvastatin Calcium (Lipitor -) 20 mg PO HS [facility] Last Admin: 06/06/18 23:11 Dose: 20 mg Ergocalciferol (Drisdol -) 50,000 unit PO Q30D@1000 [facility] Escitalopram Oxalate (Lexapro -) 20 mg PO DAILY [facility] Last Admin: 06/07/18 09:57 Dose: 20 mg Sodium Chloride (Normal Saline -) 1,000 mls @ 83 mls/hr IV ASDIR [facility] Stop: 06/08/18 04:33 Last Admin: 06/06/18 17:51 Dose: 83 mls/hr Lisinopril (Prinivil) 10 mg PO DAILY [facility] Last Admin: 06/07/18 09:57 Dose: 10 mg - Objective Vital Signs: Vital Signs Temperature 98.0 F 06/07/18 10:00 Pulse Rate 83 06/07/18 10:00 Respiratory Rate 20 06/07/18 10:00 Blood Pressure 166/96 06/07/18 10:00 O2 Sat by Pulse Oximetry (%) 95 06/07/18 09:00 Constitutional: Yes: Well Nourished Eyes: Yes: WNL Neurological: Yes: Alert, Oriented, Babinski negative ...Motor Strength: RUE (4), RLE (4) Labs: CBC, BMP 06/07/18 05:30 06/07/18 05:30 INR, PTT INR 1.00 (0.83-1.09) 06/06/18 12:37 Problem List - Problems (1) Fall Assessment/Plan: frequent falls and 87-year-old woman Questionable gait apraxia associated with advanced dementia No evidence of normal pressure hydrocephalus Gait dysfunction multifactorial 1. Fall precautions. 2. Rule out cardiac arrhythmia. 3. CAT scan of the lumbosacral spine to rule out spinal stenosis. 5. Physical therapy. 6. DVT prophylaxis. 7. Follow-up with cardiology Thank you very much for allowing me to be part of this patient's neurological care Code(s): W19.XXXA - UNSPECIFIED FALL, INITIAL ENCOUNTER Qualifiers: Encounter type: initial encounter Qualified Code(s): W19.XXXA - Unspecified fall, initial encounter
--- NOTE | 2018-06-07 13:16 | PN ---
Teaching Attending Note Name of Resident: Alejandro Coello ATTENDING PHYSICIAN STATEMENT I saw and evaluated the patient. I reviewed the resident's note and discussed the case with the resident. I agree with the resident's findings and plan as documented. SUBJECTIVE: Feels okay - no specific complaints. No further lightheadedness or dizziness. No headache/visual disturbance. OBJECTIVE: Tmax overnight 100.7, Hemodynamically Stable. Last Vital Signs Temp Pulse Resp BP Pulse Ox 98.0 F 83 20 166/96 95 06/07/18 10:00 06/07/18 10:00 06/07/18 10:06/07/18 10:06/07/18 09:00 HEENT - Extensive bruising Left forehead with laceration s/p suture, Left and Right periorbital ecchymoses. Neuro - AAO x 3. EOMI. Tone/Power normal (exam limited by splinted Left wrist). ARCADIO. Heart - S1, S2, soft SM Abdomen - Soft, generalized tenderness. No guarding/rebound. Bowel Sounds normal. Extremities - LUE dressed s/p reduction and suture. LLE dressed below knee. Laboratory Results - last 24 hr 06/06/18 06/06/18 06/06/18 12:37 12:37 17:55 WBC RBC Hgb Hct MCV MCH MCHC RDW Plt Count MPV Sodium 140 Potassium 4.0 Chloride 104 Carbon Dioxide 27 Anion Gap 9 BUN 18 Creatinine 0.9 Creat Clearance w eGFR 59.09 Random Glucose 95 Calcium 9.1 Magnesium Total Bilirubin 0.3 AST 34 ALT 42 Alkaline Phosphatase 96 Creatine Kinase 90 Troponin I < 0.02 Total Protein 7.1 Albumin 3.4 Vitamin B12 326 TSH 0.61 Urine Color Ltyellow Urine Appearance Slcloudy Urine pH 6.0 Ur Specific [place] 1.011 Urine Protein Negative Urine Glucose (UA) Negative Urine Ketones Negative Urine Blood Negative Urine Nitrite Negative Urine Bilirubin Negative Urine Urobilinogen Negative Ur Leukocyte Esterase Trace Urine WBC (Auto) 9 Urine RBC (Auto) 2 Ur Epithelial Cells Few Urine Bacteria Rare Blood Type O POSITIVE Antibody Screen Negative 06/07/18 06/07/18 05:30 05:30 WBC 7.0 RBC 4.09 Hgb 12.2 Hct 36.2 MCV 88.6 MCH 29.8 MCHC 33.6 RDW 13.8 Plt Count 256 MPV 7.9 Sodium 141 Potassium 3.8 Chloride 108 H Carbon Dioxide 25 Anion Gap 8 BUN 12 Creatinine 0.7 Creat Clearance w eGFR > 60 Random Glucose 84 Calcium 8.7 Magnesium 2.1 Total Bilirubin AST ALT Alkaline Phosphatase Creatine Kinase Troponin I Total Protein Albumin Vitamin B12 TSH Urine Color Urine Appearance Urine pH Ur Specific [place] Urine Protein Urine Glucose (UA) Urine Ketones Urine Blood Urine Nitrite Urine Bilirubin Urine Urobilinogen Ur Leukocyte Esterase Urine WBC (Auto) Urine RBC (Auto) Ur Epithelial Cells Urine Bacteria Blood Type Antibody Screen Current Medications Generic Name Dose Route Start Last Admin Trade Name Freq PRN Reason Stop Dose Admin Acetaminophen 650 mg 06/06/18 16:20 06/06/18 23:09 Tylenol - PO 650 mg Q4H PRN Administration PAIN LEVEL 1-5 Artificial Tears 1 drop 06/06/18 22:00 06/07/18 09:59 Artificial Tears OD 1 drop BID [facility] Administration Aspirin 81 mg 06/07/18 10:00 06/07/18 09:57 Asa - PO 81 mg DAILY [facility] Administration Atorvastatin Calcium 20 mg 06/06/18 22:00 06/06/18 23:11 Lipitor - PO 20 mg HS [facility] Administration Ergocalciferol 50,000 unit 06/13/18 10:00 Drisdol - PO Q30D@1000 [facility] Escitalopram Oxalate 20 mg 06/07/18 10:00 06/07/18 09:57 Lexapro - PO 20 mg DAILY [facility] Administration Sodium Chloride 1,000 mls @ 83 mls/hr 06/06/18 16:30 06/06/18 17:51 Normal Saline - IV 06/08/18 04:33 83 mls/hr ASDIR [facility] Administration Lisinopril 10 mg 06/07/18 10:00 06/07/18 09:57 Prinivil PO 10 mg DAILY [facility] Administration ASSESSMENT AND PLAN: 87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 She refers standing in the bathroom, feeling dizzy/lightheaded with her next memory of waking on the floor. She denies any preceding CP/ palpitations. She also reported abdominal pain on a background of 1-2 day history of loose stool. No fever/chills. 1. Syncope, etiology unclear, likely secondary to dehydration due to diarrhea. CT Head - no acute findings. Recent Echo - normal EF with mild to mod . ECG - SR, low voltage QRS - no change from prior ECG 05/22 TnI and CPK normal. UCx pending. Telemonitoring. Carotid Duplex - no significant stenosis. Gentle hydration. Encourage oral intake. PT eval. 2. Non-specific Abdominal Discomfort/tenderness with reported Diarrhea CT A/P - no acute intra-abdominal process. Bilateral basal airspace opacities, possible aspiration. Stool Cx pending. Cdiff negative. Trial of diet and gentle hydration. 3. Bilateral basal opacities - questionable aspiration. T 100.7 overnight. No respiratory distress. Will hold off Abx for now. If any further spike in temperature, will start Abx therapy. Speech/swallow eval requested. 4. Musculoskeletal and soft tissue Injury sec to collapse/trauma, including: Left Radius fracture s/p reduction and fixation in ED Laceration to Left forehead and L hand - sutured in ED. - CT Facial Bones: no fracture - CT C Spine: Severe DJD - XRay Pelvis: No fracture, s/p hip replacement - L foot/ankle Xray: DJD Orthopedic consult requested. PT eval. 5. HTN - Normally on Lisinopril - continue. 6. HLD - normally on Zocor - continue. 7. Hx of prior CVA with mild Dementia - patient unable to communicate if any residual deficit but usually mobilizes in a wheelchair, using a walker for shorter distances. No focal deficit on physical exam (which was limited by acute musculoskeletal injuries). Continue Aspirin, Statin, Lexapro. DVT Px - held for now sec to trauma with extensive ecchymoses including geovany- orbital bruising. Can start tomorrow if no further bleeding and stable H/H.
--- NOTE | 2018-06-07 20:22 | CONS ---
DATE OF CONSULTATION: 06/07/2018 CHIEF COMPLAINT: Left wrist pain. HISTORY OF PRESENT ILLNESS: This is an 87-year-old female with history of hypertension, hyperlipidemia, stroke, peripheral vascular disease, dementia, who suffered a trip and fall. She was found to have a distal radius fracture. Orthopedic consultation was called. She notes a little bit of pain in her head as well as having pain in the wrist. She denies any numbness or tingling. PAST MEDICAL HISTORY: As above. PAST SURGICAL HISTORY: Noncontributory. SOCIAL HISTORY: Denies alcohol, drugs, or tobacco. ALLERGIES: Denies. REVIEW OF SYMPTOMS: Negative for any fever, chills, diaphoresis. No runny nose, throat pain or throat swelling. No chest pain, palpitations, or shortness of breath. No abdominal pain, distention, or nausea. No dysuria, frequency, or urgency. PHYSICAL EXAMINATION: General: This is an elderly female in no acute distress. She is alert and answering questions appropriately. Vital Signs: She is afebrile and vital signs are stable. HEENT: She is diffusely ecchymotic about her face. Extremities: The left upper extremity demonstrates diffuse but mild swelling. There is mild ecchymosis. There is mild dorsal deformity. There is a laceration in the second web space which has been sutured and is clean, dry, and intact. Sensation is grossly intact to light touch. Thumbs up, finger abduction, and okay sign are grossly intact. Radial pulse 2+. Radiographs reviewed demonstrating a dorsally angulated distal radius fracture. ASSESSMENT: Left distal radius fracture. PLAN: I discussed today's findings with the patient. Her wrist fracture is in a mildly displaced position. Given that her overall mental status as well as her right hand dominance, I believe this is best treated conservatively. The patient was then placed into traction. The left upper extremity was then gently manipulated. A short arm cast with significant padding was now placed utilizing a 3-point rolled to ensure fracture stability. Dressing was placed over the wound in the web space. Patient will follow up in 2 weeks with followup radiographs as an outpatient. GERARDO MARTI M.D. [id number]
[2018-06-07] MEDS: SODIUM CHLORIDE 1,000 ML IV SCH (20:40)
[2018-06-07] MEDS: ATORVASTATIN CA 20 MG TABLET (FP) PO SCH (21:31)
[2018-06-07] MEDS: ACETAMINOPHEN 325 MG TABLET (FP) PO PRN (21:33)
[2018-06-08 06:44] LABS: HEMATOCRIT 36.1 % (32.4-45.2); HEMOGLOBIN 12.2 GM/dL (10.7-15.3); MCH 29.9 pg (25.7-33.7); MEAN PLT VOLUME 7.7 fl (7.5-11.1); PLATELET COUNT 237 K/MM3 (134-434); RDW 14.1 % (11.6-15.6); WHITE BLOOD COUNT 7.1 K/mm3 (4.0-10.0)
[2018-06-08 07:31] LABS: ALBUMIN 2.9 g/dl (3.4-5.0); ALK PHOS 74 U/L (45-117); ANION GAP 7 MMOL/L (8-16); BILIRUBIN,TOTAL 0.5 mg/dL (0.2-1); BLOOD UREA NITROGEN 13 mg/dL (7-18); CALCIUM 8.4 mg/dL (8.5-10.1); CHLORIDE 107 mmol/L (98-107); CO2 26 mmol/L (21-32); CREATININE 0.7 mg/dL (0.55-1.3); GLUCOSE,RANDOM 81 mg/dL (74-106); MAGNESIUM 2.3 mg/dL (1.8-2.4); PHOSPHOROUS 3.3 mg/dL (2.5-4.9); POTASSIUM 3.5 mmol/L (3.5-5.1); SGOT/AST 20 U/L (15-37); SGPT/ALT 25 U/L (13-61); SODIUM 140 mmol/L (136-145); TOT PROT 6.1 g/dl (6.4-8.2)
[2018-06-08] MEDS: ASPIRIN 81 MG CHEWABLE TABLETS PO SCH (09:37)
[2018-06-08] MEDS: ESCITALOPRAM OXALATE 20 MG TABLET (FP) PO SCH (09:37)
[2018-06-08] MEDS: LISINOPRIL 10 MG TABLET (FP) PO SCH (09:37)
[2018-06-08] MEDS: ARTIFICIAL TEARS (POLYVINYL ALCOHOL) OPTH DROPS OD SCH (09:41)
--- NOTE | 2018-06-08 10:35 | PN ---
Progress Note, Physician Chief Complaint: Not in distress History of Present Illness: Patient was seen and examined. More awake and alert. Chart was reviewed - Current Medication List Current Medications: Active Medications Acetaminophen (Tylenol -) 650 mg PO Q4H PRN PRN Reason: PAIN LEVEL 1-5 Last Admin: 06/07/18 21:33 Dose: 650 mg Artificial Tears (Artificial Tears) 1 drop OD BID [facility] Last Admin: 06/08/18 09:41 Dose: 1 drop Aspirin (Asa -) 81 mg PO DAILY [facility] Last Admin: 06/08/18 09:37 Dose: 81 mg Atorvastatin Calcium (Lipitor -) 20 mg PO HS [facility] Last Admin: 06/07/18 21:31 Dose: 20 mg Ergocalciferol (Drisdol -) 50,000 unit PO Q30D@1000 [facility] Escitalopram Oxalate (Lexapro -) 20 mg PO DAILY [facility] Last Admin: 06/08/18 09:37 Dose: 20 mg Lisinopril (Prinivil) 10 mg PO DAILY [facility] Last Admin: 06/08/18 09:37 Dose: 10 mg - Objective Vital Signs: Vital Signs Temperature 98.8 F 06/08/18 09:00 Pulse Rate 86 06/08/18 09:00 Respiratory Rate 18 06/08/18 09:00 Blood Pressure 151/85 06/08/18 09:00 O2 Sat by Pulse Oximetry (%) 95 06/07/18 21:00 HENT: Yes: Atraumatic Neck: Yes: Supple Cardiovascular: Yes: Regular Rate and Rhythm, Murmur (Soft SM), S1, S2 Respiratory: Yes: Diminished Gastrointestinal: Yes: Normal Bowel Sounds, Soft. No: Tenderness Edema: No Labs: CBC, BMP 06/08/18 05:30 06/08/18 05:30 INR, PTT INR 1.00 (0.83-1.09) 06/06/18 12:37 Problem List - Problems (1) Dementia Code(s): F03.90 - UNSPECIFIED DEMENTIA WITHOUT BEHAVIORAL DISTURBANCE Qualifiers: Dementia type: unspecified type Dementia behavioral disturbance: without behavioral disturbance Qualified Code(s): F03.90 - Unspecified dementia without behavioral disturbance (2) Distal radius fracture, left Code(s): S52.502A - UNSP FRACTURE OF THE LOWER END OF LEFT RADIUS, INIT Qualifiers: Encounter type: initial encounter Fracture type: closed Fracture morphology: unspecified fracture morphology Qualified Code(s): S52.502A - Unspecified fracture of the lower end of left radius, initial encounter for closed fracture (3) Facial laceration Code(s): S01.81XA - LACERATION W/O FOREIGN BODY OF OTH PART OF HEAD, INIT ENCNTR Qualifiers: Encounter type: initial encounter Qualified Code(s): S01.81XA - Laceration without foreign body of other part of head, initial encounter (4) CAD (coronary artery disease) Code(s): I25.10 - ATHSCL HEART DISEASE OF [place] CORONARY ARTERY W/O ANG PCTRS Qualifiers: Coronary Disease-Associated Artery/Lesion type: [place] artery [place] vs. transplanted heart: [place] heart Associated angina: without angina Qualified Code(s): I25.10 - Atherosclerotic heart disease of [place] coronary artery without angina pectoris (5) CVA (cerebral infarction) Code(s): I63.9 - CEREBRAL INFARCTION, UNSPECIFIED Qualifiers: Cerebral infarction mechanism: unspecified mechanism Qualified Code(s): I63.9 - Cerebral infarction, unspecified (6) HTN (hypertension) Code(s): I10 - ESSENTIAL (PRIMARY) HYPERTENSION Qualifiers: Hypertension type: essential hypertension Qualified Code(s): I10 - Essential (primary) hypertension (7) History of percutaneous coronary intervention Code(s): Z98.890 - OTHER SPECIFIED POSTPROCEDURAL STATES (8) Hyperlipemia Code(s): E78.5 - HYPERLIPIDEMIA, UNSPECIFIED Qualifiers: Hyperlipidemia type: pure hypercholesterolemia Qualified Code(s): E78.00 - Pure hypercholesterolemia, unspecified; E78.0 - Pure hypercholesterolemia Assessment/Plan 1. ?Syncope vs. mechanical fall resulting in external injury with left ulnar styloid fracture and orbital ecchymosis 2. HTN 3. Hypercholesterolemia 4. Organic brain syndrome/dementia PLAN: 1. Monitor on telemetry 2. Continue Lisinopril as tolerated 3. ASA 4. Lipitor Further plans are to follow Lopez Guerra MD
--- NOTE | 2018-06-08 11:54 | PN ---
Progress Note, [employer] - Note Progress Note: Selected Entries 06/07/18 06/07/18 06/07/18 01:00 05:00 10:00 Supper Temperature 98.2 F 98.7 F 98.0 F 06/07/18 06/07/18 06/07/18 14:00 18:00 22:00 Supper 50% Temperature 98.3 F 98.6 F 99 F 06/08/18 06/08/18 06/08/18 02:00 06:00 09:00 Supper Temperature 97.4 F L 97.7 F 98.8 F Laboratory Tests 06/08/18 05:30 WBC 7.1 Cognitively improving, better eye contact, engaging more. Still with word errors and anomia. She knows that she lives at [facility] and is at [facility] for a fall. Pt will benefit from continued Cognitive/Linquistic tx at [facility] upon d/c.
--- NOTE | 2018-06-08 12:47 | PN ---
Teaching Attending Note Name of Resident: Alejandro Coello ATTENDING PHYSICIAN STATEMENT I saw and evaluated the patient. I reviewed the resident's note and discussed the case with the resident. I agree with the resident's findings and plan as documented. SUBJECTIVE:asymptomatic. has some pain in the face but controlled with pain medications. 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 She refers standing in the bathroom, feeling dizzy/lightheaded with her next memory of waking on the floor. She denies any preceding CP/ palpitations. She also reported abdominal pain on a background of 1-2 day history of loose stool. No fever/chills. 1. Syncope, etiology unclear, likely secondary to dehydration due to diarrhea. all workup is negative. no further workup 2. Non-specific Abdominal Discomfort/tenderness with reported Diarrhea. improved. tolerating diet 3. B/L opacities- afebrile >24H. saturating well on RA. no cough. would not treat with abx at this time. S&S eval with tolerating regular diet. 4. Musculoskeletal and soft tissue Injury sec to collapse/trauma, laceration to forehead with sutures in place. will need to have removed after 7 days. L wrist was reduced and placed in short cast. will need to f/u with ortho in 2 weeks. all remaining imaging negative for acute fracture 5. HTN - Normally on Lisinopril - continue. 6. HLD - normally on Zocor - continue. 7. Hx of prior CVA with mild Dementia - Continue Aspirin, Statin, Lexapro. 8. As per PT is now at baseline. will return to [facility]. spoke with brother present at bedside. all questions answered. agreed with plan.
--- NOTE | 2018-06-08 14:24 | DS ---
Physical Exam: SUBJECTIVE: Patient seen and examined at bedside this morning. She continues to endorse some pain in her left arm. She denies new acute complaints. OBJECTIVE: Vital Signs Period Temp Pulse Resp BP Sys/Pagan Pulse Ox Last 24 Hr 97.4 F-99 F 76-90 18-20 140-159/71-85 94-95 PHYSICAL EXAM GENERAL: The patient is awake, alert, oriented to person, and place in no acute distress. HEAD: Normocephalic. Laceration 5cm along left forehead, sutured in ED. EYES: Bilateral periorbital echymosis. Extraocular movements intact. PERRL, sclera anicteric, conjunctiva clear. ENT: Oropharynx clear without exudates, dry mucous membranes. NECK: Supple without lymphadenopathy, or JVD LUNGS: Breath sounds equal, clear to auscultation bilaterally, no wheezes, no crackles, no accessory muscle use. HEART: Regular rate and rhythm, S1, S2 without murmur, rub or gallop. ABDOMEN: Soft, nontender, nondistended, normoactive bowel sounds, no guarding, no rebound, no hepatosplenomegaly, no masses. EXTREMITIES: 2+ pulses. Left upper extremity, and left lower extremity splinted , wrapped with bandage. NEUROLOGICAL: Cranial nerves II through XII grossly intact. Normal speech. PSYCH: Normal mood, normal affect. SKIN: Warm, dry LABS Laboratory Results - last 24 hr 06/08/18 06/08/18 05:30 05:30 WBC 7.1 RBC 4.10 Hgb 12.2 Hct 36.1 MCV 88.0 MCH 29.9 MCHC 34.0 RDW 14.1 Plt Count 237 MPV 7.7 Sodium 140 Potassium 3.5 Chloride 107 Carbon Dioxide 26 Anion Gap 7 L BUN 13 Creatinine 0.7 Creat Clearance w eGFR > 60 Random Glucose 81 Calcium 8.4 L Phosphorus 3.3 Magnesium 2.3 Total Bilirubin 0.5 AST 20 ALT 25 Alkaline Phosphatase 74 Total Protein 6.1 L Albumin 2.9 L IMAGING: -Left wrist xray shows distal radial fracture, volar angulation. Ulnar styloid fracture. -Left foot ankle xray shows degenerative changes. No acute fracture or subluxation -Left hip xray shows right hip replacement, with no acute pathology. -CT head shows no acute intracranial pathology -CT facial bones shows no fractures -CT cervical spine shows no fracture. Severe degenerative arthritis noted. -Carotid duplex shows no hemodynamically significant stenosis HOSPITAL COURSE: Date of Admission:06/07/18 Date of Discharge: 06/08/18 Patient is an 87 year old female with history of dementia, prior CVA, falls, syncopal episodes, hypertension, hyperlipidemia presents after a fall. EKG showed normal sinus rhythm at 82 BPM. Troponin 0.02. CPK 90, TSH 0.61, B12 326. UA was not impressive for UTI. Forehead and left hand lacerations were sutured in ED. Left distal radial fracture was reduced with traction in ED, placed in splint. There was concern for left foot fracture, and was placed in splint. Patient was evaluated by orthopedic surgery who discussed outpatient follow up. She complained of abdominal pain, and had CT abdomen, pelvis showing fatty liver , with questionable cysts. Abdominal pain improved, and patient tolerated diet. Patient discharged back to [facility] to continue home medications. Counselled regarding judicious oral hydration. Discharged with follow up with primary care physician, orthopedic surgeon, neurologist, supervisor industrial arts education. Minutes to complete discharge: 35 Discharge Summary Reason For Visit: CLOSED HEAD INJURY,FRACTURE IF DISRAL END OF Current Active Problems Closed head injury (Acute) Distal radius fracture, left (Acute) Facial laceration (Acute) Fall (Acute) Hand laceration (Acute) Near syncope (Acute) Dementia (Chronic) Condition: Stable - Instructions Diet, Activity, Other Instructions: Hospital course: You were admitted to the hospital after a fall, and had Xrays, and CT scans taken which showed a fracture in your left wrist for which you were evaluated by the orthopedic surgeon. Your wrist was casted. You were also evaluated by supervisor industrial arts education, and neurologist. You are being discharged back to [facility] on [address]. Medication recommendations: Continue taking your home medications as directed. Ensure that you remain adequately hydrated and drink plenty of water daily. Follow up recommendations: You will need a repeat x-ray of your wrist in 1-2 weeks as recommended by the orthopedic physician. Follow up with your primary care physician within two-three days of hospital discharge. You will need your forehead sutures removed by 06/13/2018. Discuss with the staff physician at [facility]. There are two sutures within the forehead and five in the left hand. Follow up with orthopedic surgeon (Dr. Jeffers) within one week of discharge. Follow up with neurologist (Dr. Giraldo) within one week of discharge. Follow up with supervisor industrial arts education (Dr. Marroquin) within one week of discharge. Return to the nearest Emergency Department if you experience worsening symptoms , fevers, chills, shortness of breath, chest pain, palpitations, abdominal pain , nausea, vomiting. Referrals: Brian Jeffers MD [Staff Physician] - Lopez Guerra MD [Staff Physician] - Kashif Giraldo MD [Staff Physician] - Disposition: CUSTODIAL FACILITY - Home Medications Comprehensive Discharge Medication List: Ambulatory Orders Escitalopram Oxalate [Lexapro -] 20 mg PO DAILY 10/25/13 Simvastatin [Zocor -] 40 mg PO HS 10/25/13 Sennosides [Senna -] 1 tab PO HS 10/09/14 Acetaminophen 1,000 mg PO ASDIR PRN 05/11/17 Ergocalciferol [Vitamin D2] 50,000 unit PO MONTHLY 05/11/17 Lisinopril [Prinivil] 10 mg PO DAILY tablet 05/14/17 Aspirin [ASA -] 81 mg PO DAILY 06/06/18 Polyvinyl Alcohol [Artificial Tears] 1 drop OD BID 06/06/18 Polyvinyl Alcohol [Artificial Tears] 1 drop OD BID drops 06/08/18 This patient is new to me today: No Emergency Visit: Yes ED Registration Date: 06/07/18 Care time: The patient presented to the Emergency Department on the above date and was hospitalized for further evaluation of their emergent condition. Critical Care patient: No - Discharge Referral Referred to [facility] Med P.C.: No
[2018-06-08 14:46] VITALS: BP 132/66; PULSE 93; TEMP 99.3
[2018-06-08] MEDS: ACETAMINOPHEN 325 MG TABLET (FP) PO PRN (14:54)
--- NOTE | 2018-06-08 15:05 | HOL ---
Hook-up date: 2018-06-07 12:33:00 Duration: 23:01:00 Test Indications: NEAR SYNCOPE Medications: 243661 QRS complexes 256 Ventricular ectopics which represent <1 % of total QRS comp. 26 Supraventricular ectopics which represent <1 % of total QRS comp. * Paced QRS complexs which represent % of total QRS comp. * % of Time Classified as Noise VENTRICULAR ECTOPY 256 Isolated 0 Bigeminal Cycles 0 Couplets 0 Runs 0 Beats in Runs * Beats LONGEST at * BPM at :: -- * Beats FASTEST at * BPM at :: -- SUPRAVENTRICULAR ECTOPY 18 Isolated 2 Couplets 1 Runs 4 Beats in Runs 4 Beats LONGEST at 132 BPM at 18:13:07 2018-06-07 4 Beats FASTEST at 132 BPM at 18:13:07 2018-06-07 HEART RATES 72 MIN at 04:53:10 2018-06-08 85 AVG 105 MAX at 19:29:02 2018-06-07 LONGEST RR 1.040 secs at 03:20:25 2018-06-08 SCANNED BY: WAQAR 06/08/18 Normal sinus rhythm Single APC's, VPC's. Atrial and ventricular couplets. No VT or pauses. Confirmed by Buck Cruz MD ([id number]) on 06/08/2018 3:04:07 PM Referred By: Ray OCHOA Overread By: Buck Cruz MD
[2018-06-13] MEDS ORDERED: ERGOCALCIFEROL (VITAMIN D2) 50,000 UNIT CAPSULE (FP) PO SCH (10:00)
== END 2018-06-08 17:11 | DRG 563 ==
LOC: JER 12:12 → JERBED 15:54 → J4W 21:16 → OBSVTOIN 06-07 10:07
PROVIDERS: ADMIT Internal Medicine; ATTEND Internal Medicine
PROC: 0HQ1XZZ Repair Face Skin, External Approach (ICD-10-PCS; principal; 2018-06-06)
PROC: 0HQGXZZ Repair Left Hand Skin, External Approach (ICD-10-PCS; 2018-06-06)
PROC: 0PSLXZZ Reposition Left Ulna, External Approach (ICD-10-PCS; 2018-06-06)
PROC: 2W3RX1Z Immobilization of Left Lower Leg using Splint (ICD-10-PCS; 2018-06-06)
DX: S52.502A Unspecified fracture of the lower end of left radius, initial encounter for closed fracture (principal); J98.11 Atelectasis; Q78.2 Osteopetrosis; S52.612A Displaced fracture of left ulna styloid process, initial encounter for closed fracture; S92.255A Nondisplaced fracture of navicular [scaphoid] of left foot, initial encounter for closed fracture; S61.412A Laceration without foreign body of left hand, initial encounter; S01.81XA Laceration without foreign body of other part of head, initial encounter; W01.0XXA Fall on same level from slipping, tripping and stumbling without subsequent striking against object, initial encounter; Y93.89 Activity, other specified; Y92.128 Other place in nursing home as the place of occurrence of the external cause; Y99.8 Other external cause status; I10 Essential (primary) hypertension; E86.0 Dehydration; R55 Syncope and collapse; F03.90 Unspecified dementia, unspecified severity, without behavioral disturbance, psychotic disturbance, mood disturbance, and anxiety; Z96.641 Presence of right artificial hip joint; E78.5 Hyperlipidemia, unspecified; F32.9 Major depressive disorder, single episode, unspecified; Z86.73 Personal history of transient ischemic attack (TIA), and cerebral infarction without residual deficits; I73.9 Peripheral vascular disease, unspecified; Z91.81 History of falling; Z66 Do not resuscitate; Z99.3 Dependence on wheelchair; R19.7 Diarrhea, unspecified; M47.9 Spondylosis, unspecified; I25.10 Atherosclerotic heart disease of native coronary artery without angina pectoris; I25.2 Old myocardial infarction; Z95.5 Presence of coronary angioplasty implant and graft
CPT/HCPCS: 36415; 70450-TC; 70486-TC; 71045-TC-FY; 72125-TC; 72131-TC; 72170-TC-FY; 73110-TC-LR-FY; 73130-TC-LT-FY; 73610-TC-LT-FY; 73630-TC-LT; 74177-TC; 80048; 80053; 81003; 81015; 82550; 82607; 83735; 84100; 84443; 84484; 85025; 85027; 85610; 85730; 86850; 86900; 86901; 87045; 87046; 87086; 87324; 87449; 90715; 93005; 93010; 93225; 93226; 93880-TC; 95816; 97161-GP; 99283-25; G0378; J0131; J7030